=== PATIENT | female | born 1945 | race Caucasian/White ===

== ENCOUNTER → 2019-10-03 19:17 | Outpatient (ROUT) | payer MEDICARE, OTHER, SELFPAY ==
[2019-10-03 20:43] LABS: Add Manual Diff / Slide Review NO; Basophils Absolute Auto 100 /uL (0-100); Basophils Percent Auto 1.8 % (0-2); Eosinophils Absolute Auto 100 /uL (0-450); Eosinophils Percent Auto 1.9 % (2-4); Hematocrit 44.4 % (36-46); Hemoglobin 14.8 g/dL (12.0-16.0); Lymphocytes Absolute Auto 2000 /uL (1100-4500); Lymphocytes Percent Auto 28.2 % (25-40); Mean Corpuscular HGB Conc 33.4 % (30-36); Mean Corpuscular Hemoglobin 30.8 PG (26-34); Mean Corpuscular Volume 92.3 fL (80-100); Monocytes Absolute Auto 400 /uL (0-900); Monocytes Percent Auto 5.7 % (3-14); Neutrophils Absolute Auto 4500 /uL (1500-7000); Neutrophils Percent Auto 62.4 % (50-75); Platelet Count 369 X10^3/uL (150-400); Red Blood Cell Count 4.81 X10^6/uL (4.0-5.2); Red Cell Distribution Width 13.6 % (11.6-14.8); White Blood Cell Count 7.2 X10^3/uL (4.5-11.0)
[2019-10-03 20:50] LABS: Alanine Aminotransferase 12 IU/L (<35); Albumin 4.1 g/dL (3.5-5.0); Albumin Globulin Ratio 1.5 (1.0-2.8); Alkaline Phosphatase 94 U/L (38-126); Aspartate Aminotransferase 21 IU/L (14-36); BUN Creatinine Ratio 23.8 (6-22); Bilirubin Total 0.6 mg/dL (0.2-1.3); Blood Urea Nitrogen 19 mg/dL (7-17); Calcium 9.7 mg/dL (8.4-10.2); Carbon Dioxide 27 mmol/L (22-32); Chloride 105 mmol/L (98-107); Cholesterol 249 mg/dL (140-199); Estimated Glomerular Filt Rate > 60.0 mL/min (>60); Globulin 2.8 g/dL (1.7-4.1); Glucose 138 mg/dL (80-110); HDL Cholesterol 58 mg/dL (40-60); HEMOLYSIS < 15 (0-50); LDL Cholesterol Calculated 157 mg/dL (<100); Magnesium 2.1 mg/dL (1.6-2.3); Potassium 3.6 mmol/L (3.4-5.1); Sodium 141 mmol/L (137-145); Total Protein 6.9 g/dL (6.3-8.2); Triglycerides 168 mg/dL (35-150)
[2019-10-03 20:59] LABS: NT-proBNP (BNP-Adult 18+) 106 pg/mL (<450)
[2019-10-03 21:07] LABS: Vitamin D 25 Hydroxy (D3) 27.9 ng/mL (30.0-100.0)
[2019-10-03 21:21] LABS: TSH w/ Reflex to FT4 3.81 uIU/mL (0.47-4.68)
== END ==
PROVIDERS: Visit Provider Physician Assistant
DX: R55 Syncope and collapse (principal); R06.02 Shortness of breath; R06.09 Other forms of dyspnea; I10 Essential (primary) hypertension; K21.9 Gastro-esophageal reflux disease without esophagitis; E78.2 Mixed hyperlipidemia
CPT/HCPCS: 80053; 80061; 82306; 83735; 83880; 84443; 85025

== ENCOUNTER → 2019-10-10 15:13 | Outpatient (CLI) | payer MEDICARE, OTHER, SELFPAY ==
--- NOTE | 2019-10-10 | DI.MRI.S_ITS ---
PROCEDURE: MR STROKE Pre- and post-contrast brain MRI, non-contrast brain MR angiogram, pre- and postcontrast neck MR angiogram INDICATIONS: Syncope and collapse TECHNIQUE: Brain: Noncontrast axial T1 spin echo, axial T2 fast spin echo, sagittal and axial FLAIR, coronal T2 fast spin echo, axial gradient echo, axial diffusion and ADC through the brain. After the administration of contrast, axial 3D VIBE of the cranial vasculature and brain. Brain MRA: Non-contrast 3-D time of flight MR angiogram, with multiple csglnbu-thlejrbbn-ubppqvetsq (MIP) reformats performed. Neck MRA: Axial and sagittal TruFISP through the neck. Coronal dynamic MR angiogram during administration of contrast in the arterial and venous phases, with 3-dimenstional uxzspjh-hifpzdnkw-ukgfgrbnms (MIP) reformats constructed from subtraction images. COMPARISON: [facility], CT, HEAD WITHOUT CONTRAST, 11/16/2014, 11:08. FINDINGS: Image quality: Mild diffuse cervical volume loss. Mild degree of patchy high FLAIR signal within the periventricular and subcortical white matter. BRAIN: CSF spaces: Ventricles are normal in size and shape. Basal cisterns are patent. No extra-axial fluid collections. Brain: No intracranial bleeds or mass effects. Hull-white matter interface is normal. Diffusion weighted images show no acute ischemic insults. Brainstem appears normal. Normal intravascular flow voids are present. No abnormal intracranial enhancement. Skull and face: Calvarial marrow signal is normal. Orbits appear normal. Sinuses: Mild mucosal thickening within the bilateral maxillary sinuses. BRAIN MR ANGIOGRAM: Anterior circulation: Intracranial internal carotid arteries are normal in size and enhancement. The flow within the paired anterior cerebral arteries is normal and symmetric. The flow within the middle cerebral arteries is normal and symmetric. The anterior communicating artery is seen. No stenoses, occlusions, or aneurysms. Posterior circulation: The visualized portions of the vertebral arteries demonstrate normal caliber, and join to form a normal appearing basilar artery. The flow within the posterior cerebral arteries is normal and symmetric. No stenoses, occlusions, or aneurysms. NECK MR ANGIOGRAM: Carotids: Great vessels demonstrate a conventional anatomy as they arise from the aortic arch. The origins of the common carotid arteries appear patent. The calibers and courses of both common carotid arteries are normal. The bifurcation regions appear normal bilaterally. The internal carotid arteries demonstrate normal course and caliber. Posterior circulation: The origins of the vertebral arteries appear patent. More superior portions of both vertebral arteries demonstrate normal course and caliber, and join to form a normal appearing basilar artery. Miscellaneous: Subclavian arteries appear patent. Pre-contrast images through the neck show no soft tissue abnormalities. IMPRESSION: BRAIN MRI: 1. No acute intracranial abnormality. No recent infarct. 2. Volume loss and small vessel ischemic disease. BRAIN MR ANGIOGRAM: Negative cerebral MR angiography. NECK MR ANGIOGRAM: 1. No internal carotid artery stenosis bilaterally. 2. Patent bilateral vertebral arteries. Dictated by: Carine Beckford M.D. on 10/10/2019 at 17:05 Approved by: Carine Beckford M.D. on 10/10/2019 at 17:10
== END ==
PROVIDERS: PCP Physician Assistant; Referring Provider Physician Assistant; Visit Provider Physician Assistant
DX: R55 Syncope and collapse (principal)
CPT/HCPCS: 70548; 70553; A9579

== ENCOUNTER → 2019-10-13 07:34 | Outpatient (CLI) | payer MEDICARE, OTHER, SELFPAY ==
--- NOTE | 2019-10-13 | DI.ECHO.S_ITS ---
[facility] +---------+ : : [address] [place] : : : : [id number] : : : : Phone: [phone] Echocardiogram Report + + :Name: ERICK FAN Study Date: 10/13/2019 Height: 63 in : :[facility] Weight: 170 lb : : Gender: Female BSA: 1.8 m2 : :: 1945 Age: 74 yrs BP: 175/95 mmHg: :Reason For Study: SOB : : Performed By: David Sen : :Referring: JABIER VELIZ : + + Interpretation Summary The ejection fraction is estimated to be 60-65%. There is trace tricuspid regurgitation. The right ventricular systolic pressure is estimated to be at least 26 mmHg based on an estimated right atrial pressure of 3 mm Hg. Procedure: A two-dimensional transthoracic echocardiogram with color flow and Doppler was performed. The study quality was technically adequate. Comparison is made with the echocardiogram of 08/07/09. The patient was in normal sinus rhythm during the exam. Left Ventricle: The left ventricle is normal in size. There is normal left ventricular wall thickness. Trabeculae near apex are visualized. No thrombus is observed. The ejection fraction is estimated to be 60-65%. Left ventricular wall motion is normal. Diastolic parameters suggest a relaxation abnormality of the left ventricle, consistent with probable normal filling pressures. Right Ventricle: The right ventricle is normal in size and function. Atria: Both atria are normal in size. The interatrial septum is intact with no evidence for an atrial septal defect. Mitral Valve: The mitral valve is normal in structure and function. There has been no significant change since the previous study. Aortic Valve: The aortic valve is trileaflet. The aortic valve opens well. There is no aortic valve stenosis. No aortic regurgitation is present. Tricuspid Valve: The tricuspid valve is normal in structure and function. There is trace tricuspid regurgitation. The right ventricular systolic pressure is estimated to be at least 26 mmHg based on an estimated right atrial pressure of 3 mm Hg. Pulmonic Valve: The pulmonic valve is normal in structure and function. There is trace pulmonic regurgitation. Great Vessels: The aortic root is normal size. The dimensions of the ascending aorta are normal. The pulmonary artery is normal size. The IVC is of normal diameter and collapses greater than 50% with a sniff. This suggests a low right atrial pressure of 3 mm Hg. Pericardium/ Pleura There is no pericardial effusion. There is no pleural effusion. MMode/2D Measurements & Calculations LVIDd: 4.9 cm LVOT diam: 2.0 cm LVIDs: 3.8 cm Ao root diam: 2.7 cm FS: 22.9 % Aortic Jxn: 1.9 cm EPSS: 0.61 cm asc Aorta Diam: 2.7 cm IVSd: 1.1 cm Ao Arch Diam (Prox Trans): 2.7 cm LVPWd: 1.00 cm LV vazquez. diameter/BSA (cm/m^2): 2.7 LV sys. diameter/BSA (cm/m^2): 2.1 LA dimension: 3.0 cm RA long axis: 3.6 cm LA A2 area: 14.3 cm2 RA area: 12.7 cm2 LA A4 area: 14.1 cm2 RA vol: 38.0 ml LA length (vol): 4.4 cm RA : 21.0 ml/m2 LA vol: 39.1 ml IVC diam: 1.3 cm LA vol index: 21.7 ml/m2 Doppler Measurements & Calculations Ao V2 max: 160.3 cm/sec LVOT Max Ten: 107.5 cm/sec Ao V2 mean: 121.6 cm/sec LV V1 max P.6 mmHg Ao max P.3 mmHg LV V1 VTI: 24.0 cm Ao mean P.2 mmHg AVANI(I,D): 2.3 cm2 Ao V2 VTI: 33.2 cm AVANI(V,D): 2.1 cm2 sev ratio: 0.72 AVANI indexed to BSA (cm^2/m^2): 1.3 MV E max ten: 59.3 cm/sec TR max ten: 237.1 cm/sec MV A max ten: 109.9 cm/sec TR max P.5 mmHg MV E/A: 0.54 PA V2 max: 96.5 cm/sec Med Peak E' Ten: 3.8 cm/sec PA V2 mean: 73.9 cm/sec E/E' med: 15.7 PA mean P.3 mmHg Lat Peak E' Ten: 4.4 cm/sec PA pr(Accel): 27.6 mmHg E/E' lat: 13.4 E/e' average: 14.5 MV dec time: 0.21 sec SV(LVOT): 75.5 ml Reading Physician:03:33 PM
== END ==
PROVIDERS: PCP Physician Assistant; Referring Provider Physician Assistant; Visit Provider Physician Assistant
DX: R06.02 Shortness of breath (principal)
CPT/HCPCS: 93306

== ENCOUNTER → 2019-11-20 08:51 | Outpatient (CLI) | payer MEDICARE, OTHER, SELFPAY ==
--- NOTE | 2019-11-20 | DI.NM.S_ITS ---
PROCEDURE: NM REBA PERF SPECT R&S PHARM Rest and pharmacological stress myocardial perfusion SPECT with gated imaging and ejection fraction RADIOPHARMACEUTICAL: 15.0 mCi Tc-99m tetrafosmin IV at rest and 26.4 mCi Tc-99m tetrafosmin IV at peak effect of pharmacological stress. Ssx-wdq-cckjyofk was performed. INDICATIONS: Other forms of dyspnea TECHNIQUE: Radiopharmaceutical was injected at peak stress test, and also at rest. SPECT images were obtained. SPECT myocardial perfusion images were displayed in short axis, horizontal long axis, and vertical long axis views. Gated images were reviewed using [employer] software. COMPARISON: None. CARDIAC STRESS: A pharmacologic stress test was performed under the supervision of an attending staff, using an infusion of lexiscan 0.4mg IV X1. Hemodynamic data: There is normal blood pressure and heart rate response to pharmacologic stress. Symptoms: The patient denied anginal chest pain. Aminophylline: none EKG: No diagnostic changes of ischemia; frequent PVCs with lexiscan. FINDINGS: Raw data: There is good myocardial uptake of radiotracer. No significant motion artifacts. Wjtv-nk-pxrfc ratio is 0.30 (normal is less than 0.38 for tetrafosmin tracer). Left ventricle function: Gated images demonstrate normal left ventricular wall thickening. No segmental wall motion abnormalities. No transient ischemic dilation; TID is 0.71 (normal less than 1.3). Left ventricle resting end diastolic volume is 51 mL. Left ventricle stress ejection fraction is 94%; normal range is above 45%. Myocardial perfusion: There is normal distribution of activity in the right and left ventricular myocardium. No fixed or reversible perfusion defects. IMPRESSION: Low risk, normal pharmaceutical nuclear stress test. 1) No perfusion evidence of ischemia or infarction. 2) Normal left ventricular size, wall motion, and systolic function (EF post stress 94%). 3) No ECG evidence of ischemia. 4) No angina during the study. 5) No prior nuclear stress test available for comparison. Dictated by: Carrie Williamson MD on 11/21/2019 at 11:25 Approved by: Carrie Williamson MD on 11/21/2019 at 11:27
--- NOTE | 2019-11-20 15:33 | PM.TREADMILL ---
Cardiac Stress Test Report Referral & Results Date Patient Seen: 11/20/19 Time Patient Seen: 15:33 Requesting provider: Camelia Flores Indication: dyspnea Rest ECG: sinus rhythm Procedure Note: After Lexiscan injection had minimal dyspnea, dizziness ; no chest discomfort Baseline ECG sinus rhythm; no significant ST changes on ECG after Lexiscan injection; occasional PVCs and trigeminy. Patient's blood pressure decreased to 90/60. Patient was given 25 ml normal saline with an improvement in blood pressure to 120/60. No reversal agents needed. Impression: Normal Lexiscan stress test. Nuclear images pending. Please note: Actual ECG tracings can be found in the PACS system.
== END ==
PROVIDERS: PCP Physician Assistant; Referring Provider Physician Assistant; Visit Provider Physician Assistant
DX: R06.09 Other forms of dyspnea (principal)
CPT/HCPCS: 78452; 93017; A9502; J2785

== ENCOUNTER → 2020-01-22 15:05 | Outpatient (CLI) | payer MEDICARE, OTHER, SELFPAY ==
--- NOTE | 2020-01-22 | DI.RAD.S_ITS ---
PROCEDURE: XR ABDOMEN MIN 2V INDICATIONS: Unspecified abdominal pain TECHNIQUE: 2 views of the abdomen were acquired. COMPARISON: [facility], , ABDOMEN ACUTE SERIES, 06/21/2011, 14:45. FINDINGS: Surgical changes and devices: None. Bowel: No pneumoperitoneum. The bowel gas pattern is normal. Soft tissues: No masses; visualized solid organ contours appear normal in size. No suspicious abdominal calcifications. Nonspecific pelvic ossifications. Bones: No suspicious bony abnormalities. Diffuse spondylosis. Mild bilateral hip joint degeneration. IMPRESSION: No definite radiographically visible nephrolithiasis Dictated by: Erwin Olea M.D. on 01/22/2020 at 15:59 Approved by: Erwin Olea M.D. on 01/22/2020 at 16:02
[2020-01-22 16:16] LABS: Add Manual Diff / Slide Review NO; Basophils Absolute Auto 100 /uL (0-100); Basophils Percent Auto 1.5 % (0-2); Eosinophils Absolute Auto 100 /uL (0-450); Eosinophils Percent Auto 1.5 % (2-4); Hematocrit 43.9 % (36-46); Lymphocytes Absolute Auto 2400 /uL (1100-4500); Lymphocytes Percent Auto 27.2 % (25-40); Mean Corpuscular HGB Conc 34.1 % (30-36); Mean Corpuscular Hemoglobin 31.2 PG (26-34); Mean Corpuscular Volume 91.4 fL (80-100); Monocytes Absolute Auto 500 /uL (0-900); Monocytes Percent Auto 5.5 % (3-14); Neutrophils Absolute Auto 5800 /uL (1500-7000); Neutrophils Percent Auto 64.3 % (50-75); Platelet Count 351 X10^3/uL (150-400); Red Cell Distribution Width 13.6 % (11.6-14.8)
[2020-01-22 16:53] LABS: Alanine Aminotransferase 12 IU/L (<35); Albumin 4.3 g/dL (3.5-5.0); Albumin Globulin Ratio 1.7 (1.0-2.8); Alkaline Phosphatase 85 U/L (38-126); Aspartate Aminotransferase 18 IU/L (14-36); BUN Creatinine Ratio 23.5 (6-22); Bilirubin Total 0.6 mg/dL (0.2-1.3); Blood Urea Nitrogen 19 mg/dL (7-17); Carbon Dioxide 21 mmol/L (22-32); Chloride 106 mmol/L (98-107); Estimated Glomerular Filt Rate > 60.0 mL/min (>60); Globulin 2.5 g/dL (1.7-4.1); Glucose 106 mg/dL (80-110); HEMOLYSIS < 15 (0-50); Potassium 3.7 mmol/L (3.4-5.1); Sodium 139 mmol/L (137-145); Total Protein 6.8 g/dL (6.3-8.2)
[2020-01-22 17:10] LABS: Vitamin D 25 Hydroxy (D3) 36.8 ng/mL (30.0-100.0)
[2020-01-22 17:26] LABS: TSH w/ Reflex to FT4 5.86 uIU/mL (0.47-4.68)
[2020-01-22 17:41] LABS: Vitamin B12 201 pg/mL (239-931)
[2020-01-22 18:44] LABS: Free T4, Direct Thyroxine 1.02 ng/dL (0.78-2.19)
== END ==
PROVIDERS: PCP Physician Assistant; Referring Provider Physician Assistant; Visit Provider Physician Assistant
DX: R10.9 Unspecified abdominal pain (principal); E78.2 Mixed hyperlipidemia; K21.0 Gastro-esophageal reflux disease with esophagitis; I10 Essential (primary) hypertension; E55.9 Vitamin D deficiency, unspecified; R53.83 Other fatigue
CPT/HCPCS: 36415; 74019; 80053; 82306; 82607; 84439; 84443; 85025

== ENCOUNTER → 2020-01-29 13:41 | Outpatient (CLI) | payer MEDICARE, OTHER, SELFPAY ==
[2020-01-29 14:12] LABS: Add Manual Diff / Slide Review NO; Basophils Absolute Auto 0 /uL (0-100); Basophils Percent Auto 0.4 % (0-2); Eosinophils Absolute Auto 100 /uL (0-450); Eosinophils Percent Auto 1.8 % (2-4); Hematocrit 41.9 % (36-46); Hemoglobin 14.5 g/dL (12.0-16.0); Lymphocytes Absolute Auto 2500 /uL (1100-4500); Lymphocytes Percent Auto 31.3 % (25-40); Mean Corpuscular HGB Conc 34.6 % (30-36); Mean Corpuscular Hemoglobin 31.9 PG (26-34); Mean Corpuscular Volume 92.2 fL (80-100); Monocytes Absolute Auto 400 /uL (0-900); Monocytes Percent Auto 5.1 % (3-14); Neutrophils Absolute Auto 4900 /uL (1500-7000); Neutrophils Percent Auto 61.4 % (50-75); Platelet Count 329 X10^3/uL (150-400); Red Blood Cell Count 4.54 X10^6/uL (4.0-5.2); Red Cell Distribution Width 13.4 % (11.6-14.8); White Blood Cell Count 7.9 X10^3/uL (4.5-11.0)
[2020-01-29 15:01] LABS: Alanine Aminotransferase 12 IU/L (<35); Albumin 4.3 g/dL (3.5-5.0); Albumin Globulin Ratio 1.8 (1.0-2.8); Alkaline Phosphatase 77 U/L (38-126); Aspartate Aminotransferase 20 IU/L (14-36); BUN Creatinine Ratio 20.2 (6-22); Bilirubin Total 0.6 mg/dL (0.2-1.3); Blood Urea Nitrogen 19 mg/dL (7-17); Calcium 9.7 mg/dL (8.4-10.2); Carbon Dioxide 26 mmol/L (22-32); Chloride 108 mmol/L (98-107); Estimated Glomerular Filt Rate 57.9 mL/min (>60); Globulin 2.4 g/dL (1.7-4.1); Glucose 117 mg/dL (80-110); HEMOLYSIS < 15 (0-50); Potassium 4.4 mmol/L (3.4-5.1); Sodium 140 mmol/L (137-145); Total Protein 6.7 g/dL (6.3-8.2)
[2020-01-29 15:31] LABS: TSH w/ Reflex to FT4 4.41 uIU/mL (0.47-4.68)
[2020-01-29 15:49] LABS: Vitamin B12 200 pg/mL (239-931)
[2020-01-29 15:55] LABS: Vitamin D 25 Hydroxy (D3) 26.9 ng/mL (30.0-100.0)
[2020-01-30 06:45] LABS: Homocysteine 23.8 umol/L (0.0-19.2)
[2020-01-31 20:36] LABS: Methylmalonic Acid,Serum 905 nmol/L (0-378)
== END ==
PROVIDERS: PCP Physician Assistant; Referring Provider Physician Assistant; Visit Provider Physician Assistant
DX: E78.2 Mixed hyperlipidemia (principal); R79.89 Other specified abnormal findings of blood chemistry; E53.8 Deficiency of other specified B group vitamins; K21.0 Gastro-esophageal reflux disease with esophagitis; I10 Essential (primary) hypertension; R53.83 Other fatigue; R10.9 Unspecified abdominal pain; E55.9 Vitamin D deficiency, unspecified
CPT/HCPCS: 36415; 80053; 82306; 82607; 83090; 83921; 84443; 85025

== ENCOUNTER 2020-05-09 15:34 | Emergency (ER) | payer MEDICARE, OTHER, SELFPAY ==
[2020-05-09] VITALS (10 sets, daily range): BP systolic 117–188; BP diastolic 59–89; PULSE 70–87; RESP 16–33; TEMP 36.9; O2SAT 93–98; BMI 30.4
--- NOTE | 2020-05-09 15:42 | DI.RAD.S_ITS ---
PROCEDURE: XR CHEST 1V INDICATIONS: chest pain TECHNIQUE: One view of the chest was acquired. COMPARISON: [facility], , CHEST FOR PICC PLACEMENT, 11/16/2010, 12:49. FINDINGS: Surgical changes and devices: None. Lungs and pleura: Lungs are clear. No pneumothorax. Trace left-sided pleural fluid collection. Mediastinum: Mediastinal contours appear normal. Heart size is normal. Bones and chest wall: No suspicious bony lesions. Overlying soft tissues appear unremarkable. IMPRESSION: Trace left-sided pleural fluid collection. Dictated by: Melinda Mcclendon MD, PhD on 05/09/2020 at 16:19 Approved by: Melinda Mcclendon MD, PhD on 05/09/2020 at 16:20
--- NOTE | 2020-05-09 15:48 | PC.NURSE ---
Pt was at the car wash and washing her wheels when she felt lightheaded and laid herself on the grass. witnessed by a friend. LOC x 2-3 seconds. no injury. arrived via EMS. IVF given in field. while in ambulance pt with episode of confusion, was unable to spell her name and was word searching. FAST negative. NIH 0. Labs drawn and sent, placed on cardiac monitoring and RT aware of EKG.
[2020-05-09 16:00] LABS: Add Manual Diff / Slide Review NO; Basophils Absolute Auto 100 /uL (0-100); Basophils Percent Auto 1.4 % (0-2); Eosinophils Absolute Auto 100 /uL (0-450); Eosinophils Percent Auto 0.6 % (2-4); Hematocrit 43.4 % (36-46); Hemoglobin 14.6 g/dL (12.0-16.0); Lymphocytes Absolute Auto 2400 /uL (1100-4500); Lymphocytes Percent Auto 25.5 % (25-40); Mean Corpuscular HGB Conc 33.7 % (30-36); Monocytes Absolute Auto 600 /uL (0-900); Monocytes Percent Auto 6.5 % (3-14); Neutrophils Absolute Auto 6200 /uL (1500-7000); Platelet Count 296 X10^3/uL (150-400); Red Blood Cell Count 4.71 X10^6/uL (4.0-5.2); Red Cell Distribution Width 12.9 % (11.6-14.8); White Blood Cell Count 9.3 X10^3/uL (4.5-11.0)
[2020-05-09 16:09] LABS: PTT Partial Thromboplastin Tim 26 SECONDS (26.4-36.2)
[2020-05-09 16:12] LABS: Alanine Aminotransferase 15 IU/L (<35); Albumin 4.2 g/dL (3.5-5.0); Albumin Globulin Ratio 1.6 (1.0-2.8); Alkaline Phosphatase 75 U/L (38-126); Aspartate Aminotransferase 21 IU/L (14-36); Bilirubin Total 0.6 mg/dL (0.2-1.3); Blood Urea Nitrogen 26 mg/dL (7-17); Calcium 9.1 mg/dL (8.4-10.2); Carbon Dioxide 24 mmol/L (22-32); Chloride 106 mmol/L (98-107); Creatine Kinase 41 U/L (30-135); Estimated Glomerular Filt Rate 39.8 mL/min (>60); Globulin 2.7 g/dL (1.7-4.1); Glucose 119 mg/dL (80-110); HEMOLYSIS < 15 (0-50); Lipase 68 U/L (23-300); Potassium 3.7 mmol/L (3.4-5.1); Sodium 139 mmol/L (137-145); Total Protein 6.9 g/dL (6.3-8.2)
--- NOTE | 2020-05-09 16:13 | ED_ITS ---
HPI - General Adult General Chief complaint: Syncope Stated complaint: Syncope Time Seen by Provider: 05/09/20 16:13 History of Present Illness HPI narrative: 74-year-old woman with a history of hypertension on ramipril presents with 2 near syncopal episodes today. The she has had 3 other days with similar findings. The 1st time she was walking in the [place] and noticed increasing dyspnea and near-syncope describes a graying out. She sat down to avoid falling and experienced a brief loss of consciousness without loss of bowel or bladder function. She had a similar episode that resulted in outpatient MRI stress test and echocardiogram all of which were unremarkable. Last week she describes feeling quite fatigued and did not leave her apartment. Today she got up and while in the shower had a episode of dizziness near-syncope sat down did not lose consciousness. After some breakfast felt significantly improved. Went to a friend's house and while bending over washing the wheels of her car she again felt dizzy. She sat down continued to feel that she was going to ?dye out? laid back and believes that she did lose consciousness for a brief few seconds. Again no loss of bowel or bladder function. She notes that she seemed a bit fuzzy as the medics were bringing her in but feels absolutely back to normal in the emergency department. Related Data Home Medications Medication Instructions Recorded Confirmed CHOLECALCIFEROL (VITAMIN D3) #0 11/14/10 (Vitamin D3) [CALCIUM] #0 11/14/10 [DIURETIC] #0 11/14/10 RAMIPRIL #0 06/21/11 Allergies Allergy/AdvReac Type Severity Reaction Status Date / Time Tetanus Toxoid Allergy Unknown Uncoded 11/17/17 12:14 Review of Systems Review of Systems Narrative: Pertinent positive and negative findings as per HPI Remainder of review of systems is otherwise unremarkable for Constitutional: Fevers, chills, weakness ENT: No sore throat, neck pain, ear pain CV: Chest pain, palpitations, dyspnea on exertion Respiratory: Cough, wheeze, dyspnea GI: Nausea, vomiting, diarrhea, change in bowel habits, black or bloody stools : Dysuria, hematuria, flank pain MS: Muscle weakness, numbness, joint swelling or warmth Skin: Rashes, nonhealing lesions Patient History Medical History Hypertension (Acute) Exam Narrative Exam Narrative: General: Healthy appearing, in no acute distress. Able to give a complete and coherent history. Well-nourished well-developed HEENT: Moist mucous membranes, normal sclera with reactive pupils, Neck: No JVD, supple Respiratory: Lungs are clear to auscultation, no wheezing no rales no rhonchi. Full and symmetrical air movement Cardiac: Regular rate and rhythm no murmurs no bruits Abdomen: Soft nontender good bowel tones, no flank pain Skin: Warm and dry, no rashes Neurologic: Grossly neurologically intact with no obvious asymmetries or abnormalities Extremities: No trauma, well perfused Psych: Cooperative, appropriate insight and affect Of note mildly orthostatic Initial Vital Signs Initial Vital Signs: Vital Signs Temperature 98.5 F 05/09/20 15:43 Pulse Rate 80 05/09/20 15:43 Respiratory Rate 20 05/09/20 15:43 Blood Pressure 136/89 05/09/20 15:43 Pulse Oximetry 94 05/09/20 15:43 Course Orders Ordered: Discontinued Medications Sodium Chloride (Normal Saline 0.9%) 1,000 mls @ 1,000 mls/hr IV BOLUS ONE Stop: 05/09/20 19:19 Last Infusion: 05/09/20 19:22 Dose: 0 mls/hr Documented by: Admin: 05/09/20 18:22 Dose: 1,000 mls/hr Documented by: BRENDA Vital Signs Vital signs: Vital Signs - 8 hr 05/09/20 15:43 05/09/20 15:44 05/09/20 16:00 Temperature 98.5 F Pulse Rate 80 80 81 Respiratory Rate 20 24 25 H Blood Pressure 136/89 Pulse Oximetry 94 94 94 05/09/20 16:01 05/09/20 16:30 05/09/20 16:31 Temperature Pulse Rate 78 76 76 Respiratory Rate 22 33 H 27 H Blood Pressure 132/59 L 117/79 Pulse Oximetry 96 93 93 05/09/20 16:41 05/09/20 17:00 05/09/20 17:30 Temperature Pulse Rate 87 70 70 Respiratory Rate 32 H 21 23 Blood Pressure 147/63 H 153/70 H 158/66 H Pulse Oximetry 97 97 98 Medical Decision Making Medical Records Medical records reviewed: Yes I reviewed the patient's medical records. Medical records narrative: 11/2019 normal Lexiscan stress test 10/2019 Echo: Interpretation Summary The ejection fraction is estimated to be 60-65%. There is trace tricuspid regurgitation. The right ventricular systolic pressure is estimated to be at least 26 mmHg based on an estimated right atrial pressure of 3 mm Hg. 10/2019 [facility] [place] IMPRESSION: BRAIN MRI: 1. No acute intracranial abnormality. No recent infarct. 2. Volume loss and small vessel ischemic disease. BRAIN MR ANGIOGRAM: Negative cerebral MR angiography. NECK MR ANGIOGRAM: 1. No internal carotid artery stenosis bilaterally. 2. Patent bilateral vertebral arteries. Dictated by: Carine Beckford M.D. on 10/10/2019 at 17:05 Lab Data Lab results reviewed: Yes I reviewed the patient's lab results. Lab results narrative: Jump in creatinine from 0.94-1.3 Result diagrams: 05/09/20 15:50 05/09/20 15:50 Labs: Lab Results 05/09/20 05/09/20 05/09/20 Range/Units 15:50 15:50 15:50 WBC 9.3 (4.5-11.0) X10^3/uL RBC 4.71 (4.0-5.2) X10^6/uL Hgb 14.6 (12.0-16.0) g/dL Hct 43.4 (36-46) % MCV 92.0 (80-100) fL MCH 31.0 (26-34) PG MCHC 33.7 (30-36) % RDW 12.9 (11.6-14.8) % Plt Count 296 (150-400) X10^3/uL Neut % (Auto) 66.0 (50-75) % Lymph % (Auto) 25.5 (25-40) % [place] % (Auto) 6.5 (3-14) % Eos % (Auto) 0.6 L (2-4) % Baso % (Auto) 1.4 (0-2) % Neut # (Auto) 6200 (2072-2748) /uL Lymph # (Auto) 2400 (1358-9009) /uL [place] # (Auto) 600 (0-900) /uL Eos # (Auto) 100 (0-450) /uL Baso # (Auto) 100 (0-100) /uL PT 12.0 (10.1-12.7) SECONDS INR 1.0 (0.9-1.3) APTT 26 L (26.4-36.2) SECONDS Sodium 139 (137-145) mmol/L Potassium 3.7 (3.4-5.1) mmol/L Chloride 106 (98-107) mmol/L Carbon Dioxide 24 (22-32) mmol/L BUN 26 H (7-17) mg/dL Creatinine 1.30 H (0.52-1.04) mg/dL Estimated GFR 39.8 L (>60) mL/min BUN/Creatinine Ratio 20.0 (6-22) Glucose 119 H (80-110) mg/dL Calcium 9.1 (8.4-10.2) mg/dL Total Bilirubin 0.6 (0.2-1.3) mg/dL AST 21 (14-36) IU/L ALT 15 (<35) IU/L Alkaline Phosphatase 75 (38-126) U/L Total Creatine Kinase 41 (30-135) U/L CK-MB (CK-2) TNP CK-MB (CK-2) Rel Index TNP Troponin I < 0.012 (0.01-0.034) ng/mL Total Protein 6.9 (6.3-8.2) g/dL Albumin 4.2 (3.5-5.0) g/dL Globulin 2.7 (1.7-4.1) g/dL Albumin/Globulin Ratio 1.6 (1.0-2.8) Lipase 68 (23-300) U/L Point of Care Testing Glucose POC 119 Point of care testing: Point of Care Testing Glucose POC 119 [facility] Narrative Medical decision making narrative: 74-year-old woman now with 5 episodes of near-syncope where she has a sense that she is dizzy going to pass out is able to sit down or lay down and then feels better. She has had a thorough outpatient workup looking for strokes ischemic disease as well as heart failure with no significant findings noted. I suspect that a component of this is orthostatic. From laying to standing today she did increase her heart rate from 70 up to 91. Will give her L of fluid. At this point I believe that she is safe for home discharge will ask her to follow-up with her primary care physician. She is not currently on a diuretic. At this time I do not suspect stroke, TIA, acute coronary syndrome or STEMI, no obvious infection and no evidence of seizure. Discharge Plan Departure Patient Disposition: Home Clinical Impression: Syncope due to orthostatic hypotension Hypertension Qualifiers: Hypertension type: essential hypertension Qualified Code(s): I10 - Essential (primary) hypertension Discharge Date/Time: 05/09/20 19:37 Instructions: DI for Orthostatic Hypotension Activity Restrictions/Additional Instructions: Thank you for coming in today Your workup was very reassuring. Your kidney function suggests that you are slightly dehydrated and that fits perfectly with the symptoms that you are having today. There is no evidence of a stroke, heart attack or heart attack like syndrome, seizure or infection You were given a L of fluid in the emergency department. Please continue your ramipril as prescribed. I would also recommend following up with Ms. Flores to make sure that you are continuing to feel well. If you have new or worsening symptoms, please return to the emergency department Prescriptions: No Action CHOLECALCIFEROL (VITAMIN D3) (Vitamin D3) Qty: 0 RF: 0 [CALCIUM] Qty: 0 RF: 0 [DIURETIC] Qty: 0 RF: 0 RAMIPRIL Qty: 0 RF: 0 Referrals: Camelia Flores PA-C [Primary Care Provider] -
[2020-05-09 16:23] LABS: Troponin I < 0.012 ng/mL (0.01-0.034)
[2020-05-09] MEDS: SODIUM CHLORIDE 0.9% 1,000 ML 1000 ML IV (18:22)
== END 2020-05-09 19:37 | disposition home or self-care (01) ==
PROVIDERS: Emergency Provider Emergency Medicine; PCP Physician Assistant
DX: R55 Syncope and collapse (principal)
CPT/HCPCS: 71045; 80053; 82550; 82962; 83690; 84484; 85025; 85610; 85730; 93005; 96360; 99284

== ENCOUNTER 2020-10-08 09:34 | Inpatient (IN) | payer MEDICARE, OTHER, SELFPAY ==
[2020-10-08] VITALS (19 sets, daily range): BP systolic 119–204; BP diastolic 56–99; PULSE 69–93; RESP 16–24; TEMP 36.2–37.4; O2SAT 95–98; BMI 30.1; BMI 30.2
--- NOTE | 2020-10-08 10:47 | ED.GIBLEED ---
HPI - GI Bleed General Chief complaint: GI Bleed Stated complaint: nausea/vomiting/diarrhea with bright blood 2days Time Seen by Provider: 10/08/20 10:41 Source: patient History of Present Illness HPI Narrative: Patient here for lower abdominal discomfort but bright red blood bowel movements in the past 1 day. Over the weekend had nausea and vomiting nonbloody. Patient states had bloody stools 18 years ago with C diff. However was not on antibiotics at time and is not on any currently. Denies any back pain syncope or chest pain. Is not on any blood thinners. No recent colonoscopy. No prior history of diverticulosis. No palpitations dizziness or syncope complaint: blood on toilet paper Related Data Home Medications Medication Instructions Recorded Confirmed ramipril 5 mg PO DAILY 10/08/20 10/08/20 Allergies Allergy/AdvReac Type Severity Reaction Status Date / Time Tetanus Toxoid Allergy Unknown Uncoded 11/17/17 12:14 Review of Systems Review of Systems Narrative: GENERAL: Denies chills, fatigue, malaise, fever, sweats. HEENT: Denies sinus pain, ear pain, sore throat RESPIRATORY: Denies dyspnea, cough CARDIOVASCULAR: Denies chest pain, palpitations GASTROINTESTINAL: Complains nausea, vomiting, abdominal pain, complains of bright red blood per rectum : Denies dysuria, frequency, hematuria MUSCULOSKELETAL: denies muscle or bony pain SKIN: Denies rash, skin lesions NEUROLOGIC: Denies weakness, numbness ROS Unobtainable: All systems reviewed & are unremarkable except as noted in HPI and below Patient History Medical History Hypertension Surgical History Hx of appendectomy Social History household members: none Smoking Status: Former smoker alcohol intake: never Exam Narrative Exam Narrative: GENERAL: in no distress, not toxic not dyspneic HEAD: Normocephalic. EYES: Pupils equal round No scleral icterus. No injection no discharge, pink conjunctivae ENT: Mucous membranes moist. NECK: Trachea midline. CARDIOVASCULAR: Regular rate and rhythm without murmurs RESPIRATORY: Clear to auscultation. Breath sounds equal bilaterally. No wheezes, rales, or rhonchi. 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 There is bright red blood on glove. No melena. Hemoccult positive EXTREMITIES: No gross deformities. BACK: No flank tenderness. NEURO: AOx4. SKIN: Warm and dry PSYCH: Not anxious, is cooperative Initial Vital Signs Initial Vital Signs: Vital Signs Pulse Rate 86 10/08/20 10:20 Blood Pressure 148/99 H 10/08/20 10:20 Pulse Oximetry 98 10/08/20 10:20 Course Course Course Narrative: No bloody stools here. During course of stay Decision to Admit Date: 10/08/20 Decision to Admit time: 12:58 Orders Ordered: Hydromorphone HCl (Hydromorphone 0.5 Mg Inj) 0.5 mg IV Q6H PRN PRN Reason: Pain, Moderate (4-6) Sodium Chloride (Normal Saline 0.9%) 1,000 mls @ 100 mls/hr IV CONT [facility] Last Admin: 10/09/20 05:16 Dose: 100 mls/hr Documented by: Infusion: 10/09/20 04:15 Dose: 100 mls/hr Documented by: Admin: 10/08/20 18:15 Dose: 100 mls/hr Documented by: MICHELLE Naloxone HCl (Naloxone 0.4 Mg/Ml Vial) 0.2 mg IV Q2MIN PRN PRN Reason: Opiate Reversal Ondansetron HCl (Ondansetron 4 Mg/2 Ml Inj) 4 mg IV Q8HR PRN PRN Reason: Nausea And Vomiting Ramipril (Ramipril 2.5 Mg Capsule) 5 mg PO DAILY [facility] Discontinued Medications Sodium Chloride (Normal Saline 0.9%) 500 mls @ 1,000 mls/hr IV BOLUS ONE Stop: 10/08/20 11:50 Last Infusion: 10/08/20 13:01 Dose: 0 mls/hr Documented by: Admin: 10/08/20 12:27 Dose: 1,000 mls/hr Documented by: STEPHANI Ramipril (Ramipril 5 Mg Capsule) 5 mg PO DAILY [facility] Vancomycin HCl (Vancomycin 125 Mg Capsule) 125 mg PO Q6H [facility] Last Admin: 10/09/20 07:39 Dose: 125 mg Documented by: Admin: 10/09/20 01:12 Dose: 125 mg Documented by: Admin: 10/08/20 19:13 Dose: 125 mg Documented by: MICHELLE Reevaluation(s) Reevaluation #1: Updated patient results. She agrees for admission/observation Consultations Consultation #1: Spoke with Dr. Negrete, surgeon, admit to hospitalist. Do serial hemoglobin and hematocrit. No bowel prep at this time. Will re-evaluate tomorrow morning Time: 12:58 Vital Signs Vital signs: Vital Signs - 8 hr 10/08/20 10:20 10/08/20 10:22 10/08/20 10:30 Temperature 97.2 F L Pulse Rate 86 69 80 Respiratory Rate 16 Blood Pressure 148/99 H 148/99 H Pulse Oximetry 98 97 97 10/08/20 11:00 10/08/20 11:30 Temperature Pulse Rate 91 H 78 Respiratory Rate Blood Pressure Pulse Oximetry 95 97 MDM - GI Bleed Differential Diagnosis Differential diagnosis: Likely infectious diarrhea, Lower gastrointestinal hemorrhage and hematochezia Lab Data Attestation: I reviewed the patient's lab results. Result diagrams: 10/09/20 04:45 10/09/20 04:45 Labs: Lab Results 10/08/20 10/08/20 10/08/20 Range/Units 10:50 10:50 10:50 WBC 24.6 H (4.5-11.0) X10^3/uL RBC 4.60 (4.0-5.2) X10^6/uL Hgb 14.0 (12.0-16.0) g/dL Hct 42.3 (36-46) % MCV 92.1 (80-100) fL MCH 30.4 (26-34) PG MCHC 33.0 (30-36) % RDW 13.7 (11.6-14.8) % Plt Count 271 (150-400) X10^3/uL Neut % (Auto) 82.9 H (50-75) % Lymph % (Auto) 12.1 L (25-40) % Newton % (Auto) 4.2 (3-14) % Eos % (Auto) 0.2 L (2-4) % Baso % (Auto) 0.6 (0-2) % Neut # (Auto) 13427 H (3278-4808) /uL Lymph # (Auto) 3000 (0166-3523) /uL Newton # (Auto) 1000 H (0-900) /uL Eos # (Auto) 0 (0-450) /uL Baso # (Auto) 100 (0-100) /uL PT 12.7 (10.1-12.7) SECONDS INR 1.1 (0.9-1.3) APTT 27 (26.4-36.2) SECONDS Sodium 136 L (137-145) mmol/L Potassium 3.6 (3.4-5.1) mmol/L Chloride 103 (98-107) mmol/L Carbon Dioxide 25 (22-32) mmol/L BUN 18 H (7-17) mg/dL Creatinine 0.96 (0.52-1.04) mg/dL Estimated GFR 56.4 L (>60) mL/min BUN/Creatinine Ratio 18.8 (6-22) Glucose 118 H (80-110) mg/dL Calcium 9.1 (8.4-10.2) mg/dL Total Bilirubin 1.5 H (0.2-1.3) mg/dL AST 19 (14-36) IU/L ALT 13 (<35) IU/L Alkaline Phosphatase 90 (38-126) U/L Total Creatine Kinase 46 (30-135) U/L CK-MB (CK-2) TNP CK-MB (CK-2) Rel Index TNP Troponin I < 0.012 (0.01-0.034) ng/mL Total Protein 6.7 (6.3-8.2) g/dL Albumin 4.0 (3.5-5.0) g/dL Globulin 2.7 (1.7-4.1) g/dL Albumin/Globulin Ratio 1.5 (1.0-2.8) SARS-CoV-2 (PCR) (Negative) Blood Type Antibody Screen 10/08/20 10/08/20 Range/Units 10:50 13:33 WBC (4.5-11.0) X10^3/uL RBC (4.0-5.2) X10^6/uL Hgb (12.0-16.0) g/dL Hct (36-46) % MCV (80-100) fL MCH (26-34) PG MCHC (30-36) % RDW (11.6-14.8) % Plt Count (150-400) X10^3/uL Neut % (Auto) (50-75) % Lymph % (Auto) (25-40) % Newton % (Auto) (3-14) % Eos % (Auto) (2-4) % Baso % (Auto) (0-2) % Neut # (Auto) (9029-7391) /uL Lymph # (Auto) (1337-5806) /uL Newton # (Auto) (0-900) /uL Eos # (Auto) (0-450) /uL Baso # (Auto) (0-100) /uL PT (10.1-12.7) SECONDS INR (0.9-1.3) APTT (26.4-36.2) SECONDS Sodium (137-145) mmol/L Potassium (3.4-5.1) mmol/L Chloride (98-107) mmol/L Carbon Dioxide (22-32) mmol/L BUN (7-17) mg/dL Creatinine (0.52-1.04) mg/dL Estimated GFR (>60) mL/min BUN/Creatinine Ratio (6-22) Glucose (80-110) mg/dL Calcium (8.4-10.2) mg/dL Total Bilirubin (0.2-1.3) mg/dL AST (14-36) IU/L ALT (<35) IU/L Alkaline Phosphatase (38-126) U/L Total Creatine Kinase (30-135) U/L CK-MB (CK-2) CK-MB (CK-2) Rel Index Troponin I (0.01-0.034) ng/mL Total Protein (6.3-8.2) g/dL Albumin (3.5-5.0) g/dL Globulin (1.7-4.1) g/dL Albumin/Globulin Ratio (1.0-2.8) SARS-CoV-2 (PCR) Negative (Negative) Blood Type B Positive Antibody Screen Negative Imaging Data CT scan - abdomen/pelvis: Radiologist's Impression: [address] [id number] Scan ReportSigned Patient: Donna Cartgaena LMR#: [id number]: [id number]:[id number]/Sex: 75 / FDate of Service: 10/08/20Loc: EDAccession Number: [id number] Procedure: CT abdomen pelvis w con Ordering Provider: Lobo Stewart MD PROCEDURE: CT ABDOMEN PELVIS W CON INDICATIONS: Lower abdominal pain/GI bleed TECHNIQUE: After the administration of intravenous contrast, 5 mm thick sections acquired from the diaphragm to the symphysis. 5 mm coronal and sagittal reformats were acquired. For radiation dose reduction, the following was used: automated exposure control, adjustment of mA and/or kV according to patient size. COMPARISON: [facility], CT, ABDOMEN/PELVIS WITH CONTRAST, 11/14/2010, 13:21. FINDINGS: Image quality: Excellent. ABDOMEN: Lung bases: Lung bases are clear. Heart size is normal. Small hiatal hernia. Solid organs: Liver is normal in size and enhancement. Gallbladder is unremarkable. Biliary system is non dilated. Pancreas enhances normally. Spleen is normal in size and enhancement. No adrenal nodules. Kidneys demonstrate normal size and enhancement, without hydronephrosis. Peritoneum and bowel: There is moderate circumferential bowel wall thickening with mild surrounding inflammatory stranding involving the mid transverse colon extending into the distal descending colon. No evidence for free air or abscess formation. Small amount of scattered free fluid within the lower abdomen and pelvis likely reactive in etiology. No rim enhancement. No peritoneal thickening or enhancement. No free air. Nodes and vessels: No retroperitoneal or mesenteric adenopathy by size criteria. Aorta and inferior vena cava are normal in size. Scattered atherosclerotic calcifications of the abdominal aorta and iliac vessels without aneurysmal dilatation. Miscellaneous: No ventral hernias. PELVIS: Genitourinary: Urinary bladder wall thickness appears normal for degree of distension. Miscellaneous: No inguinal hernias. No pelvic adenopathy. Bones: No suspicious bony lesions. No acute vertebral body compression fractures. IMPRESSION: 1. Findings compatible with colitis of the transverse and descending colon likely infectious or inflammatory in etiology. No evidence for perforation or abscess formation. Consider direct visualization to exclude underlying neoplastic process once acute symptoms have resolved. 2. No evidence for bowel obstruction. 3. Small hiatal hernia. 4. Atherosclerosis. 5. Small amount of scattered free fluid likely reactive in etiology. Dictated by: Mohinder Holliday M.D. on 10/08/2020 at 11:48 Approved by: Mohinder Holliday M.D. on 10/08/2020 at 12:00 ECG Data Attestation: I personally reviewed and interpreted this ECG as follows: Interpretation: Normal sinus rhythm, no ST elevation or depression. Ventricular rate 79 MDM Narrative Medical decision making narrative: Addendum October 09, 2020 12:12 p.m.. Completing chart from yesterday. Appropriate for admission for monitoring hemoglobin and hematocrit. Reviewed with surgeon and hospitalist and agree for admit. Discharge Plan Departure Patient Disposition: Admitted as Observation Clinical Impression: Lower gastrointestinal hemorrhage Admit Date/Time: 10/08/20 13:35 Admit Provider: Vimal Khalil
[2020-10-08 11:01] LABS: Add Manual Diff / Slide Review NO; Basophils Absolute Auto 100 /uL (0-100); Basophils Percent Auto 0.6 % (0-2); Eosinophils Absolute Auto 0 /uL (0-450); Eosinophils Percent Auto 0.2 % (2-4); Hematocrit 42.3 % (36-46); Lymphocytes Absolute Auto 3000 /uL (1100-4500); Lymphocytes Percent Auto 12.1 % (25-40); Mean Corpuscular Hemoglobin 30.4 PG (26-34); Mean Corpuscular Volume 92.1 fL (80-100); Monocytes Absolute Auto 1000 /uL (0-900); Monocytes Percent Auto 4.2 % (3-14); Neutrophils Absolute Auto 20400 /uL (1500-7000); Neutrophils Percent Auto 82.9 % (50-75); Platelet Count 271 X10^3/uL (150-400); Red Cell Distribution Width 13.7 % (11.6-14.8); White Blood Cell Count 24.6 X10^3/uL (4.5-11.0)
[2020-10-08 11:08] LABS: INR 1.1 (0.9-1.3); Prothrombin Time 12.7 SECONDS (10.1-12.7)
[2020-10-08 11:12] LABS: Alanine Aminotransferase 13 IU/L (<35); Albumin Globulin Ratio 1.5 (1.0-2.8); Alkaline Phosphatase 90 U/L (38-126); Aspartate Aminotransferase 19 IU/L (14-36); BUN Creatinine Ratio 18.8 (6-22); Bilirubin Total 1.5 mg/dL (0.2-1.3); Blood Urea Nitrogen 18 mg/dL (7-17); Calcium 9.1 mg/dL (8.4-10.2); Carbon Dioxide 25 mmol/L (22-32); Chloride 103 mmol/L (98-107); Creatine Kinase 46 U/L (30-135); Estimated Glomerular Filt Rate 56.4 mL/min (>60); Globulin 2.7 g/dL (1.7-4.1); Glucose 118 mg/dL (80-110); HEMOLYSIS < 15 (0-50); PTT Partial Thromboplastin Tim 27 SECONDS (26.4-36.2); Potassium 3.6 mmol/L (3.4-5.1); Sodium 136 mmol/L (137-145); Total Protein 6.7 g/dL (6.3-8.2)
[2020-10-08 11:23] LABS: Troponin I < 0.012 ng/mL (0.01-0.034)
--- NOTE | 2020-10-08 11:37 | DI.CT.S_ITS ---
PROCEDURE: CT ABDOMEN PELVIS W CON INDICATIONS: Lower abdominal pain/GI bleed TECHNIQUE: After the administration of intravenous contrast, 5 mm thick sections acquired from the diaphragm to the symphysis. 5 mm coronal and sagittal reformats were acquired. For radiation dose reduction, the following was used: automated exposure control, adjustment of mA and/or kV according to patient size. COMPARISON: [facility], CT, ABDOMEN/PELVIS WITH CONTRAST, 11/14/2010, 13:21. FINDINGS: Image quality: Excellent. ABDOMEN: Lung bases: Lung bases are clear. Heart size is normal. Small hiatal hernia. Solid organs: Liver is normal in size and enhancement. Gallbladder is unremarkable. Biliary system is non dilated. Pancreas enhances normally. Spleen is normal in size and enhancement. No adrenal nodules. Kidneys demonstrate normal size and enhancement, without hydronephrosis. Peritoneum and bowel: There is moderate circumferential bowel wall thickening with mild surrounding inflammatory stranding involving the mid transverse colon extending into the distal descending colon. No evidence for free air or abscess formation. Small amount of scattered free fluid within the lower abdomen and pelvis likely reactive in etiology. No rim enhancement. No peritoneal thickening or enhancement. No free air. Nodes and vessels: No retroperitoneal or mesenteric adenopathy by size criteria. Aorta and inferior vena cava are normal in size. Scattered atherosclerotic calcifications of the abdominal aorta and iliac vessels without aneurysmal dilatation. Miscellaneous: No ventral hernias. PELVIS: Genitourinary: Urinary bladder wall thickness appears normal for degree of distension. Miscellaneous: No inguinal hernias. No pelvic adenopathy. Bones: No suspicious bony lesions. No acute vertebral body compression fractures. IMPRESSION: 1. Findings compatible with colitis of the transverse and descending colon likely infectious or inflammatory in etiology. No evidence for perforation or abscess formation. Consider direct visualization to exclude underlying neoplastic process once acute symptoms have resolved. 2. No evidence for bowel obstruction. 3. Small hiatal hernia. 4. Atherosclerosis. 5. Small amount of scattered free fluid likely reactive in etiology. Dictated by: Mohinder Holliday M.D. on 10/08/2020 at 11:48 Approved by: Mohinder Holliday M.D. on 10/08/2020 at 12:00
[2020-10-08] MEDS: SODIUM CHLORIDE 0.9% 500 ML 1000 ML IV (12:27)
[2020-10-08 14:01] LABS: COVID19 -Nasal RAPID Negative (Negative)
--- NOTE | 2020-10-08 15:00 | PC.ADMIT ---
[id number] [facility] Admission Note: Patient came up to floor and ambulated to the bed. Vital signs are stable. Patient educated about the use of call light. Bed alarm is active. Bed is low and locked. Call light within reach. The patient,Donna Cartagena,75 y/o, was given written information regarding hospital policies, unit procedures and contact persons. Patient's smoking status: Former smoker. Vital Signs - 8 hr 10/08/20 10:20 10/08/20 10:22 10/08/20 10:30 Temperature 97.2 F L Pulse Rate 86 69 80 Respiratory Rate 16 Blood Pressure 148/99 H 148/99 H Pulse Oximetry 98 97 97 10/08/20 11:00 10/08/20 11:30 10/08/20 11:46 Temperature Pulse Rate 91 H 78 86 Respiratory Rate Blood Pressure 119/56 L Pulse Oximetry 95 97 96 10/08/20 12:00 10/08/20 12:30 10/08/20 13:00 Temperature Pulse Rate 82 79 79 Respiratory Rate Blood Pressure 163/68 H 150/67 H 153/68 H Pulse Oximetry 96 96 98 10/08/20 13:30 10/08/20 13:31 10/08/20 14:00 Temperature Pulse Rate 93 H 85 81 Respiratory Rate 24 Blood Pressure 204/88 H 172/74 H Pulse Oximetry 97 97 96 10/08/20 14:47 Temperature 98.1 F Pulse Rate 83 Respiratory Rate 16 Blood Pressure 148/73 H Pulse Oximetry 98
--- NOTE | 2020-10-08 17:21 | PC.NURSE ---
Addendum entered by Tiff Craig R.N. 10/08/20 21:16: Pt resting at intervals Denies discomfort. IVF continue as per orders. Tele shows NSR per ICU staff. Call light w/in reach, bed alarm on for pt safety. Continue w/plan of care. Addendum entered by Tiff Craig R.N. 10/08/20 18:38: Orders received for IVF NS @ 100cc/hr via pump into the RAC hung. Pt NPO at this time. Pt voided 300cc pink urine. Original Note: Pt alert/oriented. Denies discomfort at this time. Lungs clear, SpO2 97% RA Tele placed,showing NSR per ICU staff. HL CHARLES intact/patent. No stool as of yet for lab. Call light w/in reach, pt calls apprpriately for needs.
[2020-10-08] MEDS: SODIUM CHLORIDE 0.9% 1,000 ML 100 ML IV (18:15)
--- NOTE | 2020-10-08 18:48 | PM.HP.1 ---
History of Present Illness History of Present Illness Date Patient Seen: 10/08/20 Time Patient Seen: 18:48 Date of Onset of Symptoms: 10/06/20 Chief complaint: nausea/vomiting/diarrhea with bright blood 2days Narrative: Donna Cartagena is a 75 year old female with a past medical history of hypertension as well as orthostatic syncope who presented after multiple episodes of hematochezia. Patient states that 2 days ago she began developing nausea with vomiting that was nonbloody and nonbilious. Shortly after that she began having multiple episodes of bloody diarrhea. This improved somewhat yesterday, but then she subsequently developed a bilateral lower quadrant pressure sensation her abdomen with continued bright red blood per rectum. She denies any fevers, chills, recent antibiotic therapy. She denies any palpitations. She does state that she gets dyspnea on exertion and when she exerts herself she also gets slightly dizzy and orthostatic. She has been to the ER a couple of times and states she had a negative MRI, stress test, and echocardiogram about a year ago. Reports prior C. diff infection 10 years ago without recurrence since. No recent antibiotic therapy. No food fear or weight loss. Does not believe pain is worse with meals but she has not tried much recently. In the emergency room, the patient was mildly hypertensive but the remainder for vital signs were unremarkable. Rectal exam performed in the emergency room revealed jonatan blood. Initial hemoglobin was 14. The patient was admitted for further evaluation, surgery consultation ordered and discussed with Dr. Negrete. Patient History Medical History Hypertension Surgical History Hx of appendectomy Family & Social History Social History: household members none Prior Living Arrangements Apartment/Condo Safety & Behavioral: Feels Safe in Current Yes Environment Been Physically Hurt or No Threatened By a Person Suicidal Ideation Description None Suicide Plan Description No Plan Tobacco & Substance use: Smoking Status Former smoker alcohol intake never Substance Use Type does not use Meds Home Medications and Allergies Home Medications Medication Instructions Recorded Confirmed Type ramipril 5 mg PO DAILY 10/08/20 10/08/20 History Allergies Allergy/AdvReac Type Severity Reaction Status Date / Time Tetanus Toxoid Allergy Unknown Uncoded 11/17/17 12:14 Review of Systems Review of Systems Narrative: All other systems reviewed with the patient and are negative unless otherwise stated. Exam Vital Signs (past 8 hours): - 10/08/20 11:00 10/08/20 11:30 10/08/20 11:46 Temperature Pulse Rate 91 H 78 86 Respiratory Rate Blood Pressure 119/56 L Pulse Oximetry 95 97 96 10/08/20 12:00 10/08/20 12:30 10/08/20 13:00 Temperature Pulse Rate 82 79 79 Respiratory Rate Blood Pressure 163/68 H 150/67 H 153/68 H Pulse Oximetry 96 96 98 10/08/20 13:30 10/08/20 13:31 10/08/20 14:00 Temperature Pulse Rate 93 H 85 81 Respiratory Rate 24 Blood Pressure 204/88 H 172/74 H Pulse Oximetry 97 97 96 10/08/20 14:47 10/08/20 15:48 10/08/20 17:34 Temperature 98.1 F 99.3 F Pulse Rate 83 77 Respiratory Rate 16 20 18 Blood Pressure 148/73 H 178/65 H Pulse Oximetry 98 95 10/08/20 17:36 Temperature Pulse Rate Respiratory Rate Blood Pressure Pulse Oximetry 97 Oxygen Delivery Method Room Air Narrative Exam Narrative: GENERAL APPEARANCE: Well developed, well nourished, in no acute distress. SKIN: Inspection of the skin reveals no rashes, ulcerations or petechiae. HEENT: Normocephalic atraumatic, extraocular muscles are intact, oropharynx is clear and mucous membranes are moist, neck is supple without adenopathy NECK: Supple and symmetric. There was no thyroid enlargement, and no tenderness, or masses were felt. CHEST: Normal AP diameter and normal contour without any kyphoscoliosis. LUNGS: Auscultation of the lungs revealed no wheezes, rhonchi, or rales. CARDIOVASCULAR: There was a regular rate and rhythm without any murmurs, gallops, rubs. Peripheral pulses were 2+ and symmetric. ABDOMEN: Soft and minimally tender in the bilateral lower quadrants, nondistended. MUSCULOSKELETAL: There was no tenderness or effusions noted. Muscle strength and tone were normal. EXTREMITIES: No cyanosis, clubbing or edema. NEUROLOGIC: Alert and oriented x 3. Normal affect. Strength is +5/5 in the Upper Extremities and Lower Extremities Bilaterally. Sensation to touch was normal. Objective ECG Impression: Normal sinus rhythm Inferior infarct , age undetermined Cannot rule out Anterior infarct , age undetermined (inferior q waves uncanged since previous tracings) Imaging CT scan - abdomen: Radiologist's impression: FINDINGS: Image quality: Excellent. ABDOMEN: Lung bases: Lung bases are clear. Heart size is normal. Small hiatal hernia. Solid organs: Liver is normal in size and enhancement. Gallbladder is unremarkable. Biliary system is non dilated. Pancreas enhances normally. Spleen is normal in size and enhancement. No adrenal nodules. Kidneys demonstrate normal size and enhancement, without hydronephrosis. Peritoneum and bowel: There is moderate circumferential bowel wall thickening with mild surrounding inflammatory stranding involving the mid transverse colon extending into the distal descending colon. No evidence for free air or abscess formation. Small amount of scattered free fluid within the lower abdomen and pelvis likely reactive in etiology. No rim enhancement. No peritoneal thickening or enhancement. No free air. Nodes and vessels: No retroperitoneal or mesenteric adenopathy by size criteria. Aorta and inferior vena cava are normal in size. Scattered atherosclerotic calcifications of the abdominal aorta and iliac vessels without aneurysmal dilatation. Miscellaneous: No ventral hernias. PELVIS: Genitourinary: Urinary bladder wall thickness appears normal for degree of distension. Miscellaneous: No inguinal hernias. No pelvic adenopathy. Bones: No suspicious bony lesions. No acute vertebral body compression fractures. IMPRESSION: 1. Findings compatible with colitis of the transverse and descending colon likely infectious or inflammatory in etiology. No evidence for perforation or abscess formation. Consider direct visualization to exclude underlying neoplastic process once acute symptoms have resolved. 2. No evidence for bowel obstruction. 3. Small hiatal hernia. 4. Atherosclerosis. 5. Small amount of scattered free fluid likely reactive in etiology. Labs Result Diagrams: 10/08/20 18:50 10/08/20 10:50 Labs: Laboratory Results - last 24 hr 10/08/20 10/08/20 10/08/20 10:50 10:50 10:50 WBC 24.6 H RBC 4.60 Hgb 14.0 Hct 42.3 MCV 92.1 MCH 30.4 MCHC 33.0 RDW 13.7 Plt Count 271 Neut % (Auto) 82.9 H Lymph % (Auto) 12.1 L [place] % (Auto) 4.2 Eos % (Auto) 0.2 L Baso % (Auto) 0.6 Neut # (Auto) 66463 H Lymph # (Auto) 3000 [place] # (Auto) 1000 H Eos # (Auto) 0 Baso # (Auto) 100 PT 12.7 INR 1.1 APTT 27 Sodium 136 L Potassium 3.6 Chloride 103 Carbon Dioxide 25 BUN 18 H Creatinine 0.96 Estimated GFR 56.4 L BUN/Creatinine Ratio 18.8 Glucose 118 H Calcium 9.1 Total Bilirubin 1.5 H AST 19 ALT 13 Alkaline Phosphatase 90 Total Creatine Kinase 46 CK-MB (CK-2) TNP CK-MB (CK-2) Rel Index TNP Troponin I < 0.012 Total Protein 6.7 Albumin 4.0 Globulin 2.7 Albumin/Globulin Ratio 1.5 SARS-CoV-2 (PCR) Blood Type Antibody Screen 10/08/20 10/08/20 10:50 13:33 WBC RBC Hgb Hct MCV MCH MCHC RDW Plt Count Neut % (Auto) Lymph % (Auto) [place] % (Auto) Eos % (Auto) Baso % (Auto) Neut # (Auto) Lymph # (Auto) [place] # (Auto) Eos # (Auto) Baso # (Auto) PT INR APTT Sodium Potassium Chloride Carbon Dioxide BUN Creatinine Estimated GFR BUN/Creatinine Ratio Glucose Calcium Total Bilirubin AST ALT Alkaline Phosphatase Total Creatine Kinase CK-MB (CK-2) CK-MB (CK-2) Rel Index Troponin I Total Protein Albumin Globulin Albumin/Globulin Ratio SARS-CoV-2 (PCR) Negative Blood Type B Positive Antibody Screen Negative Assessment & Plan Assessment & Plan narrative: Donna Cartagena is a 75 year old female with a past medical history of hypertension as well as orthostatic syncope who presented after multiple episodes of hematochezia. 1. Hematochezia, acute, present on admission - trial of clears tonight, differential includes infectious causes including c. diff (prior c. diff infection >10 years ago), acute mesenteric ischemia, amongst others. Clears should be stopped if worsening abdominal pain as this would raise the possibility of ischemic colitis. - GI panel ordered - CT with mild colonic thickening in the splenic flexure, WBC of 24 slightly improved to 23 with fluids. - general surgery, dr. negrete, consulted. - continue telemetery to monitor for evidence of afib. 2. Colitis, acute, present on admission - workup as noted above. Will start oral vancomycin empirically given leukocytosis on admission and remote history of c. diff infection. 3. Hypertension, chronic, present on admission - hold home rampiril at this time given bleeding Code: Full as discussed with the patient. Patient has a DPOA who was a member at her [employer]. She does not recall that person's name at the moment. She is a Gnosticist and does not want any blood products or transfusions. DVT: SCDs given hematochezia Dispo: Admitted under observation status COVID-19 COVID-19 status: Negative Quality VTE Deep Vein Thrombosis/Pulmonary Embolism Present on Admission: No
[2020-10-08 19:02] LABS: Add Manual Diff / Slide Review NO; Basophils Absolute Auto 200 /uL (0-100); Basophils Percent Auto 0.9 % (0-2); Eosinophils Absolute Auto 100 /uL (0-450); Eosinophils Percent Auto 0.6 % (2-4); Hematocrit 39.1 % (36-46); Hemoglobin 12.7 g/dL (12.0-16.0); Lymphocytes Absolute Auto 3600 /uL (1100-4500); Lymphocytes Percent Auto 15.9 % (25-40); Mean Corpuscular HGB Conc 32.6 % (30-36); Mean Corpuscular Hemoglobin 30.1 PG (26-34); Mean Corpuscular Volume 92.3 fL (80-100); Monocytes Absolute Auto 900 /uL (0-900); Monocytes Percent Auto 3.9 % (3-14); Neutrophils Absolute Auto 17700 /uL (1500-7000); Neutrophils Percent Auto 78.7 % (50-75); Platelet Count 254 X10^3/uL (150-400); Red Blood Cell Count 4.24 X10^6/uL (4.0-5.2); Red Cell Distribution Width 13.4 % (11.6-14.8); White Blood Cell Count 22.5 X10^3/uL (4.5-11.0)
[2020-10-08] MEDS: VANCOMYCIN 125 MG CAPSULE PO (19:13)
[2020-10-09] VITALS (12 sets, daily range): BP systolic 133–208; BP diastolic 60–82; PULSE 61–73; RESP 17–20; TEMP 35.9–37.4; O2SAT 94–97
[2020-10-09] MEDS: VANCOMYCIN 125 MG CAPSULE PO ×2 (01:12→07:39)
[2020-10-09] MEDS: SODIUM CHLORIDE 0.9% 1,000 ML 100 ML IV ×2 (05:16→16:43)
[2020-10-09 05:30] LABS: Add Manual Diff / Slide Review NO; Basophils Absolute Auto 0 /uL (0-100); Basophils Percent Auto 0.2 % (0-2); Eosinophils Absolute Auto 300 /uL (0-450); Eosinophils Percent Auto 1.7 % (2-4); Hematocrit 37.3 % (36-46); Hemoglobin 12.2 g/dL (12.0-16.0); Lymphocytes Absolute Auto 3600 /uL (1100-4500); Lymphocytes Percent Auto 20.2 % (25-40); Mean Corpuscular HGB Conc 32.7 % (30-36); Mean Corpuscular Hemoglobin 30.3 PG (26-34); Mean Corpuscular Volume 92.6 fL (80-100); Monocytes Absolute Auto 800 /uL (0-900); Monocytes Percent Auto 4.6 % (3-14); Neutrophils Absolute Auto 13200 /uL (1500-7000); Neutrophils Percent Auto 73.3 % (50-75); Platelet Count 219 X10^3/uL (150-400); Red Blood Cell Count 4.03 X10^6/uL (4.0-5.2); Red Cell Distribution Width 13.7 % (11.6-14.8)
[2020-10-09 05:36] LABS: Alanine Aminotransferase 8 IU/L (<35); Albumin 3.1 g/dL (3.5-5.0); Albumin Globulin Ratio 1.3 (1.0-2.8); Alkaline Phosphatase 67 U/L (38-126); Aspartate Aminotransferase 15 IU/L (14-36); BUN Creatinine Ratio 16.9 (6-22); Bilirubin Total 0.9 mg/dL (0.2-1.3); Bilirubin Unconjugated 0.8 mg/dL (0.0-1.1); Blood Urea Nitrogen 13 mg/dL (7-17); Calcium 8.2 mg/dL (8.4-10.2); Carbon Dioxide 26 mmol/L (22-32); Chloride 107 mmol/L (98-107); Estimated Glomerular Filt Rate > 60.0 mL/min (>60); Globulin 2.4 g/dL (1.7-4.1); Glucose 88 mg/dL (80-110); HEMOLYSIS < 15 (0-50); Potassium 3.5 mmol/L (3.4-5.1); Sodium 136 mmol/L (137-145); Total Protein 5.5 g/dL (6.3-8.2)
[2020-10-09 08:24] LABS: Adenovirus F 40/41 Not Detected (Not Detect); Astrovirus Not Detected (Not Detect); Campylobacter Not Detected (Not Detect); Clostridium difficile toxin AB Not Detected (Not Detect); Cryptosporidium Not Detected (Not Detect); Cyclospora cayetanensis Not Detected (Not Detect); Entamoeba histolytica Not Detected (Not Detect); Enteroaggregative E.coli Not Detected (Not Detect); Enteropathogenic E.coli Not Detected (Not Detect); Enterotoxigenic E.coli It/st Not Detected (Not Detect); Giardia lamblia Not Detected (Not Detect); Norovirus GI/GII Not Detected (Not Detect); Plesiomonsa shigelloides Not Detected (Not Detect); Rotavirus A Not Detected (Not Detect); Salmonella Not Detected (Not Detect); Sapovirus Not Detected (Not Detect); Shiga-like toxin-prod E.coli Not Detected (Not Detect); Shigella/Enteroinvasive E.coli Not Detected (Not Detect); Vibrio Not Detected (Not Detect); Vibrio cholerae Not Detected (Not Detect); Yersinia enterocolitica Not Detected (Not Detect)
--- NOTE | 2020-10-09 10:32 | PC.NURSE ---
Addendum entered by Génesis Neely R.N. 10/09/20 14:10: pt reporting generalized weakness after several watery BM's. Denying pain. Home BP medication re-started this shift after AM BP 208/82. Rechecked 177/81. Original Note: AM shift note. pt AO and receptive to care. Up SBA to BR due to IV pole and steady on feet. IND with ADL's. NS infusing to right AC at 100/hr. Loose, watery stools positive giuac. Denying pain but states that she gets intermittent pressure to bowels. Tele: NSR. C.diff negative. Urine is concentrated with mild odor.
--- NOTE | 2020-10-09 11:34 | CM.DANOTE ---
DCP: Case received, EMR reviewed. Called patient's room, since she is on precautions. Introduced self and role. Was able to obtain information from patient regarding her baseline activity status prior to hospitalization, as well as her current living situation. DCP assessment completed with information currently available. Patient is a 75 year old male who admitted yesterday afternoon to the care of the hospitalist team. PCP: JACQUIE Oliver at [facility]. Payer: confirmed: Medicare/[employer]. Patient came to the hospital via private vehicle secondary to having nausea and vomiting, as well as diarrhea with bleeding. Patient holds diagnosis of colitis, as well as potential c-diff. Patient is [employer], and her DPOA is a member of her [employer]. Called patient's room, since she is on precautions, to ask her about her baseline activity status, and if she resides alone. Patient confirmed that she does reside alone in [place], and is a . She is independent at her baseline, and drives. She does not use any DME supplies. P: DCP to continue to follow. Patient should be able to go home when she is medically stable. Catie Pereira RN/Nuclear Test Technician
--- NOTE | 2020-10-09 12:05 | P.CONS_ITS ---
History of Present Illness Consult details Date Patient Seen: 10/09/20 Time Patient Seen: 11:05 Chief complaint: nausea/vomiting/diarrhea with bright blood 2days Reason for consult: gi bleed Requesting provider: Vimal Khalil Narrative: 75 yo female with 2 day h/o diarrhea and bloody stools, no previous event. Today is day 3 and the stool is back to brown. no anticoagulation meds at home. No dizziness, mild abdominal pain left sided. Patient is Jehovah witness and accepts no iron or blood. no fevers. Meds Home Medications and Allergies Home Medications Medication Instructions Recorded Confirmed Type ramipril 5 mg PO DAILY 10/08/20 10/08/20 History Allergies Allergy/AdvReac Type Severity Reaction Status Date / Time Tetanus Toxoid Allergy Unknown Uncoded 11/17/17 12:14 Review of Systems Review of Systems ROS: Yes All systems reviewed with the patient and are negative except as otherwise documented Gastrointestinal Gastrointestinal: Reports abdominal pain, Reports hematochezia and Reports change in bowel habits Neurologic Neurologic: Reports system reviewed and no additional complaints, except as documented Psychiatric Psychiatric: Reports change in appetite Exam Vital Signs (past 8 hours): - 10/09/20 04:40 10/09/20 05:00 10/09/20 08:00 Temperature 98.0 F 97.9 F Pulse Rate 72 61 Respiratory Rate 18 17 Blood Pressure 153/73 H 133/75 Pulse Oximetry 96 96 97 10/09/20 09:00 10/09/20 11:30 Temperature 98.3 F Pulse Rate 68 Respiratory Rate 17 Blood Pressure 208/82 H Pulse Oximetry 97 95 Oxygen Delivery Method Room Air Oxygen Flow Rate 0 Const General: cooperative and comfortable [facility] Head: normocephalic and atraumatic Eyes Sclera: sclerae normal Neck Neck: trachea midline and supple Chest Chest: normal inspection of the chest Resp Effort & Inspection: normal respiratory effort and able to speak in complete sentences Cardio Rate: regular rate Rhythm: regular rhythm GI Palpation: soft, no hepatosplenomegaly and tender (left sided) Skin General: no rashes or lesions noted Neuro General: patient alert, patient awake and tone normal Speech: speech normal Extrem General: capillary refill normal and no calf tenderness Psych Judgment: judgment good Objective Labs Result Diagrams: 10/09/20 04:45 10/09/20 04:45 Labs: Laboratory Results - last 24 hr 10/08/20 10/08/20 10/09/20 13:33 18:50 04:45 WBC 22.5 H 18.0 H RBC 4.24 4.03 Hgb 12.7 12.2 Hct 39.1 37.3 MCV 92.3 92.6 MCH 30.1 30.3 MCHC 32.6 32.7 RDW 13.4 13.7 Plt Count 254 219 Neut % (Auto) 78.7 H 73.3 Lymph % (Auto) 15.9 L 20.2 L [place] % (Auto) 3.9 4.6 Eos % (Auto) 0.6 L 1.7 L Baso % (Auto) 0.9 0.2 Neut # (Auto) 58537 H 24574 H Lymph # (Auto) 3600 3600 [place] # (Auto) 900 800 Eos # (Auto) 100 300 Baso # (Auto) 200 H 0 Sodium Potassium Chloride Carbon Dioxide BUN Creatinine Estimated GFR BUN/Creatinine Ratio Glucose Calcium Magnesium Total Bilirubin Conjugated Bilirubin Unconjugated Bilirubin AST ALT Alkaline Phosphatase Total Protein Albumin Globulin Albumin/Globulin Ratio Stl C. cayetanensis PCR Stool Rotavirus (PCR) Stool Adenovirus (PCR) Stool Astrovirus (PCR) Stool Cryptosporidium PCR Stl E.coli Shiga Tox PCR St Sh/Enteroin Ecoli PCR Stool E coli O157 PCR Stl Enterotoxigenic E PCR Stool EPEC (PCR) Stl E. histolytica PCR Stool Giardia Lamblia PCR Stool Sapovirus (PCR) Stl P. shigelloides PCR St Y.enterocolitica PCR Stool Vibrio (PCR) Stl Vibrio cholerae PCR Stl Enteroaggr Ecoli PCR Stl Norovirus GI/GII PCR Campylobacter (PCR) C. difficile Tox (PCR) SARS-CoV-2 (PCR) Negative Salmonella (PCR) 10/09/20 10/09/20 04:45 05:00 WBC RBC Hgb Hct MCV MCH MCHC RDW Plt Count Neut % (Auto) Lymph % (Auto) [place] % (Auto) Eos % (Auto) Baso % (Auto) Neut # (Auto) Lymph # (Auto) [place] # (Auto) Eos # (Auto) Baso # (Auto) Sodium 136 L Potassium 3.5 Chloride 107 Carbon Dioxide 26 BUN 13 Creatinine 0.77 Estimated GFR > 60.0 BUN/Creatinine Ratio 16.9 Glucose 88 Calcium 8.2 L Magnesium 2.0 Total Bilirubin 0.9 Conjugated Bilirubin 0.0 Unconjugated Bilirubin 0.8 AST 15 ALT 8 Alkaline Phosphatase 67 Total Protein 5.5 L Albumin 3.1 L Globulin 2.4 Albumin/Globulin Ratio 1.3 Stl C. cayetanensis PCR Not detected Stool Rotavirus (PCR) Not detected Stool Adenovirus (PCR) Not detected Stool Astrovirus (PCR) Not detected Stool Cryptosporidium PCR Not detected Stl E.coli Shiga Tox PCR Not detected St Sh/Enteroin Ecoli PCR Not detected Stool E coli O157 PCR Not detected Stl Enterotoxigenic E PCR Not detected Stool EPEC (PCR) Not detected Stl E. histolytica PCR Not detected Stool Giardia Lamblia PCR Not detected Stool Sapovirus (PCR) Not detected Stl P. shigelloides PCR Not detected St Y.enterocolitica PCR Not detected Stool Vibrio (PCR) Not detected Stl Vibrio cholerae PCR Not detected Stl Enteroaggr Ecoli PCR Not detected Stl Norovirus GI/GII PCR Not detected Campylobacter (PCR) Not detected C. difficile Tox (PCR) Not detected SARS-CoV-2 (PCR) Salmonella (PCR) Not detected Assessment & Plan Assessment and plan (1) Lower gastrointestinal hemorrhage: Problem details: left sided colitis with elevated leukocytosis. CT scan reviewed personally. thickened colon from transverse into descending. pattern with bleeding is consistent with ischemic colitis. leukocytosis not a normal component and may be from combination of dehydration and other non lethal infection. No C dif and no Covid. Plan: supportive management with good hydration. recommend colonoscopy in 8 weeks if improved. Patient refused Iron supplements but agrees to education on foods high in iron. advance diet as tolerated. Status: Acute
[2020-10-09] MEDS: RAMIPRIL 2.5 MG 5 MG PO (13:09)
--- NOTE | 2020-10-09 14:25 | P.PN_ITS ---
Subjective Subjective Date Patient Seen: 10/09/20 Time Patient Seen: 14:25 Interval history: Donna Cartagena is a 75 year old female with a past medical history of hypertension as well as orthostatic syncope who presented after multiple episodes of hematochezia. This has slowed to loose stools with a very mild amount of blood mixed in. She still guaiac positive. Surgery is hoping that will be improvement in her symptoms and that she will be able to be discharged home with the outpatient colonoscopy in about 8 weeks. Her leukocytosis has improved to 18,000 thousand. She still has some cramping bilateral lower quadrant abdominal pain. Will begin to advance her diet as tolerated, with hope for discharge home in the next day or 2 as her symptoms hopefully improve. Exam Vital Signs (past 8 hours): - 10/09/20 08:00 10/09/20 09:00 10/09/20 11:30 Temperature 97.9 F 98.3 F Pulse Rate 61 68 Respiratory Rate 17 17 Blood Pressure 133/75 208/82 H Pulse Oximetry 97 97 95 10/09/20 13:00 10/09/20 14:19 Temperature Pulse Rate 73 Respiratory Rate Blood Pressure 177/81 H Pulse Oximetry 95 Oxygen Delivery Method Room Air Oxygen Flow Rate 0 Narrative Exam Narrative: GENERAL APPEARANCE: Well developed, well nourished, in no acute distress. SKIN: Inspection of the skin reveals no rashes, ulcerations or petechiae. HEENT: Normocephalic atraumatic, extraocular muscles are intact, oropharynx is clear and mucous membranes are moist, neck is supple without adenopathy NECK: Supple and symmetric. There was no thyroid enlargement, and no tenderness, or masses were felt. CHEST: Normal AP diameter and normal contour without any kyphoscoliosis. LUNGS: Auscultation of the lungs revealed no wheezes, rhonchi, or rales. CARDIOVASCULAR: There was a regular rate and rhythm without any murmurs, gallops, rubs. Peripheral pulses were 2+ and symmetric. ABDOMEN: Soft and minimally tender in the bilateral lower quadrants, nondistended. MUSCULOSKELETAL: There was no tenderness or effusions noted. Muscle strength and tone were normal. EXTREMITIES: No cyanosis, clubbing or edema. NEUROLOGIC: Alert and oriented x 3. Normal affect. Strength is +5/5 in the Upper Extremities and Lower Extremities Bilaterally. Sensation to touch was normal. Objective Labs Result Diagrams: 10/09/20 04:45 10/09/20 04:45 Labs: Laboratory Results - last 24 hr 10/08/20 10/09/20 10/09/20 18:50 04:45 04:45 WBC 22.5 H 18.0 H RBC 4.24 4.03 Hgb 12.7 12.2 Hct 39.1 37.3 MCV 92.3 92.6 MCH 30.1 30.3 MCHC 32.6 32.7 RDW 13.4 13.7 Plt Count 254 219 Neut % (Auto) 78.7 H 73.3 Lymph % (Auto) 15.9 L 20.2 L [place] % (Auto) 3.9 4.6 Eos % (Auto) 0.6 L 1.7 L Baso % (Auto) 0.9 0.2 Neut # (Auto) 08289 H 37390 H Lymph # (Auto) 3600 3600 [place] # (Auto) 900 800 Eos # (Auto) 100 300 Baso # (Auto) 200 H 0 Sodium 136 L Potassium 3.5 Chloride 107 Carbon Dioxide 26 BUN 13 Creatinine 0.77 Estimated GFR > 60.0 BUN/Creatinine Ratio 16.9 Glucose 88 Calcium 8.2 L Magnesium 2.0 Total Bilirubin 0.9 Conjugated Bilirubin 0.0 Unconjugated Bilirubin 0.8 AST 15 ALT 8 Alkaline Phosphatase 67 Total Protein 5.5 L Albumin 3.1 L Globulin 2.4 Albumin/Globulin Ratio 1.3 Stl C. cayetanensis PCR Stool Rotavirus (PCR) Stool Adenovirus (PCR) Stool Astrovirus (PCR) Stool Cryptosporidium PCR Stl E.coli Shiga Tox PCR St Sh/Enteroin Ecoli PCR Stool E coli O157 PCR Stl Enterotoxigenic E PCR Stool EPEC (PCR) Stl E. histolytica PCR Stool Giardia Lamblia PCR Stool Sapovirus (PCR) Stl P. shigelloides PCR St Y.enterocolitica PCR Stool Vibrio (PCR) Stl Vibrio cholerae PCR Stl Enteroaggr Ecoli PCR Stl Norovirus GI/GII PCR Campylobacter (PCR) C. difficile Tox (PCR) Salmonella (PCR) 10/09/20 05:00 WBC RBC Hgb Hct MCV MCH MCHC RDW Plt Count Neut % (Auto) Lymph % (Auto) [place] % (Auto) Eos % (Auto) Baso % (Auto) Neut # (Auto) Lymph # (Auto) [place] # (Auto) Eos # (Auto) Baso # (Auto) Sodium Potassium Chloride Carbon Dioxide BUN Creatinine Estimated GFR BUN/Creatinine Ratio Glucose Calcium Magnesium Total Bilirubin Conjugated Bilirubin Unconjugated Bilirubin AST ALT Alkaline Phosphatase Total Protein Albumin Globulin Albumin/Globulin Ratio Stl C. cayetanensis PCR Not detected Stool Rotavirus (PCR) Not detected Stool Adenovirus (PCR) Not detected Stool Astrovirus (PCR) Not detected Stool Cryptosporidium PCR Not detected Stl E.coli Shiga Tox PCR Not detected St Sh/Enteroin Ecoli PCR Not detected Stool E coli O157 PCR Not detected Stl Enterotoxigenic E PCR Not detected Stool EPEC (PCR) Not detected Stl E. histolytica PCR Not detected Stool Giardia Lamblia PCR Not detected Stool Sapovirus (PCR) Not detected Stl P. shigelloides PCR Not detected St Y.enterocolitica PCR Not detected Stool Vibrio (PCR) Not detected Stl Vibrio cholerae PCR Not detected Stl Enteroaggr Ecoli PCR Not detected Stl Norovirus GI/GII PCR Not detected Campylobacter (PCR) Not detected C. difficile Tox (PCR) Not detected Salmonella (PCR) Not detected PFSH Medical History Hypertension Surgical History Hx of appendectomy Social History household members: none Smoking Status: Former smoker alcohol intake: never Assessment & Plan Assessment & Plan narrative: Donna Cartagena is a 75 year old female with a past medical history of hypertension as well as orthostatic syncope who presented after multiple episodes of hematochezia. 1. Hematochezia, acute, present on admission - CT with mild colonic thickening in the splenic flexure, WBC of 24 slightly improved to 18.0 today. - general surgery, dr. negrete, consulted. Recommend ideally outpatient c- scope in 8 weeks if improved. High concern for ischemic colitis with fluids. Differential also includes malignancy, non-infectious and infectious causes though infectious less likely given negative GI panel. - continue telemetery to monitor for evidence of afib. - empirically started on vancomycin PO, will stop at this time given negative GI panel. - Hg trend 14 > 12.7 > 12.2. Will continue to monitor. Patient's symptoms improving with fluids. Continue CLD and advance as tolerated. No transfusions or iron supplementation per patient's advent beliefs (Pentecostalism). 2. Colitis, acute, present on admission - as discussed above. 3. Hypertension, chronic, present on admission - hold home rampiril at this time given bleeding Code: Full as discussed with the patient. Patient has a DPOA who was a member at her [employer]. She does not recall that person's name at the moment. She is a Roman Catholic and does not want any blood products or transfusions. DVT: SCDs given hematochezia Dispo: Admitted under observation status COVID-19 COVID-19 status: Negative Quality VTE Deep Vein Thrombosis/Pulmonary Embolism Present on Admission: No
--- NOTE | 2020-10-09 20:55 | PC.NURSE ---
pt rates her pain 2/10. she reports her pain increased when she is trying to have a bowel movement. watery stool, guaiac positive. pain slightly increased when she had her clear liquids for dinner. IVF infusing. bed alarm active. call light in reach.
[2020-10-10] VITALS (8 sets, daily range): BP systolic 130–189; BP diastolic 65–78; PULSE 65–69; RESP 17–20; TEMP 36.6–37.6; O2SAT 95–97
[2020-10-10] MEDS: SODIUM CHLORIDE 0.9% 1,000 ML 100 ML IV ×2 (03:41→13:54)
[2020-10-10 05:24] LABS: Add Manual Diff / Slide Review NO; Basophils Absolute Auto 100 /uL (0-100); Basophils Percent Auto 1.3 % (0-2); Eosinophils Absolute Auto 300 /uL (0-450); Eosinophils Percent Auto 2.9 % (2-4); Hematocrit 36.2 % (36-46); Hemoglobin 12.1 g/dL (12.0-16.0); Lymphocytes Absolute Auto 2900 /uL (1100-4500); Lymphocytes Percent Auto 27.8 % (25-40); Mean Corpuscular HGB Conc 33.4 % (30-36); Mean Corpuscular Hemoglobin 30.8 PG (26-34); Mean Corpuscular Volume 92.3 fL (80-100); Monocytes Absolute Auto 600 /uL (0-900); Monocytes Percent Auto 5.6 % (3-14); Neutrophils Absolute Auto 6600 /uL (1500-7000); Neutrophils Percent Auto 62.4 % (50-75); Platelet Count 243 X10^3/uL (150-400); Red Blood Cell Count 3.92 X10^6/uL (4.0-5.2); Red Cell Distribution Width 13.1 % (11.6-14.8); White Blood Cell Count 10.6 X10^3/uL (4.5-11.0)
[2020-10-10 05:36] LABS: Alanine Aminotransferase 7 IU/L (<35); Albumin 2.8 g/dL (3.5-5.0); Albumin Globulin Ratio 1.2 (1.0-2.8); Alkaline Phosphatase 59 U/L (38-126); Aspartate Aminotransferase 13 IU/L (14-36); BUN Creatinine Ratio 10.6 (6-22); Bilirubin Total 0.7 mg/dL (0.2-1.3); Bilirubin Unconjugated 0.7 mg/dL (0.0-1.1); Blood Urea Nitrogen 7 mg/dL (7-17); Carbon Dioxide 26 mmol/L (22-32); Chloride 109 mmol/L (98-107); Estimated Glomerular Filt Rate > 60.0 mL/min (>60); Globulin 2.3 g/dL (1.7-4.1); Glucose 96 mg/dL (80-110); HEMOLYSIS < 15 (0-50); Magnesium 1.8 mg/dL (1.6-2.3); Potassium 3.4 mmol/L (3.4-5.1); Sodium 137 mmol/L (137-145); Total Protein 5.1 g/dL (6.3-8.2)
[2020-10-10] MEDS: RAMIPRIL 2.5 MG 10 MG PO (09:27)
--- NOTE | 2020-10-10 14:24 | PC.NURSE ---
BP elevated 186/66, all other vitals stable. A&O x3. Pain 1/10 in lower abdomen that comes and goes. 1 person SBA. PIV left forearm, NS @ 100. Loose stools. Voiding regularly. Tolerated eating breakfast and lunch well. Tele sinus rhythm.
--- NOTE | 2020-10-10 15:56 | PM.DS.1 ---
History of Present Illness History of Present Illness Date Patient Seen: 10/10/20 Time Patient Seen: 15:56 Chief complaint: nausea/vomiting/diarrhea with bright blood 2days Narrative: Donna Cartagena is a 75 year old female with a past medical history of hypertension as well as orthostatic syncope who presented after multiple episodes of hematochezia. Patient states that 2 days ago she began developing nausea with vomiting that was nonbloody and nonbilious. Shortly after that she began having multiple episodes of bloody diarrhea. This improved somewhat yesterday, but then she subsequently developed a bilateral lower quadrant pressure sensation her abdomen with continued bright red blood per rectum. She denies any fevers, chills, recent antibiotic therapy. She denies any palpitations. She does state that she gets dyspnea on exertion and when she exerts herself she also gets slightly dizzy and orthostatic. She has been to the ER a couple of times and states she had a negative MRI, stress test, and echocardiogram about a year ago. Reports prior C. diff infection 10 years ago without recurrence since. No recent antibiotic therapy. No food fear or weight loss. Does not believe pain is worse with meals but she has not tried much recently. In the emergency room, the patient was mildly hypertensive but the remainder for vital signs were unremarkable. Rectal exam performed in the emergency room revealed jonatan blood. Initial hemoglobin was 14. The patient was admitted for further evaluation, surgery consultation ordered and discussed with Dr. Negrete. Discharge Providers Provider Date of admission: 10/08/20 13:35 Discharge Date: 10/10/20 Primary care physician: Camelia Flores PA-C Consults: 10/08/20 16:20 Consult to General Surgery Routine Comment: Consulting Provider: Kasia Negrete Reason for consultation: lower GI bleeding Discharge provider: Vimal Khalil DO Summary Hospital Course Discharge Diagnosis: See hospital course by problem list noted below. Hospital Course: Donna Cartagena is a 75 year old female with a past medical history of hypertension as well as orthostatic syncope who presented after multiple episodes of hematochezia. 1. Hematochezia, acute, present on admission, improved - CT with mild colonic thickening in the splenic flexure, WBC of 24 slightly improved to 18.0 then normal on HD#2. Her diet was advanced and she tolerated regular diet without further hematochezia. - general surgery, dr. negrete, consulted. Recommend ideally outpatient c-scope in 8 weeks. High concern for ischemic colitis. Differential also includes malignancy, non-infectious and infectious causes though infectious less likely given negative GI panel. - continued telemetery to monitor for evidence of afib, which was not noted during her hospital stay. - empirically started on vancomycin PO, and stopped after GI panel returned neative. - Hg trend 14 > 12.7 > 12.2 > 12.1. Patient's symptoms improved with fluids and her diet was advanced as noted above. No transfusions or iron supplementation per patient's voodoo beliefs (Ep[employer]alian). - outpatient follow up with surgery recommended. 2. Colitis, acute, present on admission - as discussed above. 3. Hypertension, chronic, present on admission - initially held home ramipril but patient actually became more hypertensive. Recommend increasing to 10 mg daily on discharge. Follow up with PCP. Exam Vital Signs (past 8 hours): - 10/10/20 08:00 10/10/20 09:00 10/10/20 12:00 Temperature 99.6 F 99.6 F Pulse Rate 65 67 Respiratory Rate 20 20 Blood Pressure 185/78 H 186/66 H Pulse Oximetry 97 97 97 Oxygen Delivery Method Room Air Oxygen Flow Rate 0 Narrative Exam Narrative: GENERAL APPEARANCE: Well developed, well nourished, in no acute distress. SKIN: Inspection of the skin reveals no rashes, ulcerations or petechiae. HEENT: Normocephalic atraumatic, extraocular muscles are intact, oropharynx is clear and mucous membranes are moist, neck is supple without adenopathy NECK: Supple and symmetric. There was no thyroid enlargement, and no tenderness, or masses were felt. CHEST: Normal AP diameter and normal contour without any kyphoscoliosis. LUNGS: Auscultation of the lungs revealed no wheezes, rhonchi, or rales. CARDIOVASCULAR: There was a regular rate and rhythm without any murmurs, gallops, rubs. Peripheral pulses were 2+ and symmetric. ABDOMEN: Soft and minimally tender in the bilateral lower quadrants, nondistended. MUSCULOSKELETAL: There was no tenderness or effusions noted. Muscle strength and tone were normal. EXTREMITIES: No cyanosis, clubbing or edema. NEUROLOGIC: Alert and oriented x 3. Normal affect. Strength is +5/5 in the Upper Extremities and Lower Extremities Bilaterally. Sensation to touch was normal. Objective Labs Result Diagrams: 10/10/20 05:05 10/10/20 05:05 Labs: Laboratory Results - last 24 hr 10/10/20 10/10/20 05:05 05:05 WBC 10.6 RBC 3.92 L Hgb 12.1 Hct 36.2 MCV 92.3 MCH 30.8 MCHC 33.4 RDW 13.1 Plt Count 243 Neut % (Auto) 62.4 Lymph % (Auto) 27.8 Baxter % (Auto) 5.6 Eos % (Auto) 2.9 Baso % (Auto) 1.3 Neut # (Auto) 6600 Lymph # (Auto) 2900 Baxter # (Auto) 600 Eos # (Auto) 300 Baso # (Auto) 100 Sodium 137 Potassium 3.4 Chloride 109 H Carbon Dioxide 26 BUN 7 Creatinine 0.66 Estimated GFR > 60.0 BUN/Creatinine Ratio 10.6 Glucose 96 Calcium 8.0 L Magnesium 1.8 Total Bilirubin 0.7 Conjugated Bilirubin 0.0 Unconjugated Bilirubin 0.7 AST 13 L ALT 7 Alkaline Phosphatase 59 Total Protein 5.1 L Albumin 2.8 L Globulin 2.3 Albumin/Globulin Ratio 1.2 PFSH Medical History Hypertension Surgical History Hx of appendectomy Social History household members: none Smoking Status: Former smoker alcohol intake: never Discharge Plan Discharge Plan Patient Disposition: Home Provider Discharge Comment: You were admitted to the hospital after an episode of bloody stools. These stopped without interventions. There was no evidence of infection, other possibilities include cancer, lack of blood flow, or non-infectious inflammatory causes. Surgery recommended a colonoscopy in about 8 weeks, please call their office to make a follow up appointment. Your blood pressures were elevated, I have increased your dose of ramipril, I recommend that you check your BP at home and follow up with your PCP to check on your symptoms in about a week. Try and stay well hydrated. Discharge orders & Medications Prescriptions: New ramipril 10 mg capsule 10 mg PO DAILY 30 Days Qty: 30 RF: 0 Discontinued ramipril 5 mg capsule 5 mg PO DAILY RF: 0 Follow up/Referrals: Camelia Flores PA-C [Primary Care Provider] - Kasia Negrete MD [Physician] - 6 Weeks (for colonoscopy in 8 weeks) Diet/Activity/Treatments Diet: Diet as Tolerated Activity: As tolerated Visit Report/Discharge Packet Instructions: Gastrointestinal Bleeding Discharge Data Primary Care Provider: Camelia Flores Quality VTE Deep Vein Thrombosis/Pulmonary Embolism Present on Admission: No
--- NOTE | 2020-10-10 17:04 | PC.NURSE ---
Evening Shift Note- Patient discharged home per [facility]. Discharge paperwork and education reviewed with patient and signed. IV line removed and bandaid applied. Tele monitor removed. Patient dressed self and packed up all personal belongings. Patient provided with a POLST form to fill out per patient request. Patients sone picking up patient at ER enterance. Patient left with all personal items at 1650.
== END 2020-10-10 16:50 | disposition home or self-care (01) | DRG 392 ==
LOC: ED 11:26 → AC 13:41
PROVIDERS: Admitting Provider Internal Medicine; Emergency Provider Emergency Medicine; PCP Physician Assistant; Referring Provider Emergency Medicine; Visit Provider Internal Medicine
DX: K52.9 Noninfective gastroenteritis and colitis, unspecified (principal); K55.9 Vascular disorder of intestine, unspecified; I10 Essential (primary) hypertension; Z20.822 Contact with and (suspected) exposure to COVID-19; Z87.891 Personal history of nicotine dependence; Z86.19 Personal history of other infectious and parasitic diseases
CPT/HCPCS: 36415; 74177; 80048; 80053; 80076; 82550; 83735; 84484; 85025; 85610; 85730; 86850; 86900; 86901; 87507; 87635; 93005; 96360; 99232; 99283; 99284; C9803; Q9967

== ENCOUNTER 2022-12-21 14:37 | Emergency (ER) | payer MEDICARE, OTHER, SELFPAY ==
[2020-10-08 14:26] VITALS: BMI 30.1
[2022-12-21] VITALS (22 sets, daily range): BP systolic 175–237; BP diastolic 76–106; PULSE 81–109; RESP 16–59; TEMP 37; O2SAT 92–97; BMI 30.4
--- NOTE | 2022-12-21 14:57 | DI.CT.S_ITS ---
PROCEDURE: CT HEAD/BRAIN WO CON INDICATIONS: fall/hit head TECHNIQUE: Noncontrast 4.5 mm thick angled axial sections acquired from the foramen magnum to the vertex, with coronal and sagittal reformats. For radiation dose reduction, the following was used: automated exposure control, adjustment of mA and/or kV according to patient size. COMPARISON: [facility], CT, HEAD WITHOUT CONTRAST, 11/16/2014, 11:08. FINDINGS: Image quality: There is artifact associated with the metallic earrings. CSF spaces: Basal cisterns are patent. No extra-axial fluid collections. The ventricles are symmetric in size and shape. Brain: No intracranial bleeds or masses. There is cerebral volume loss for age, with resultant ventricular and sulcal prominence. There are periventricular and deep white matter chronic small vessel ischemic changes. Areas of remote lacunar infarcts can be seen involving the basal ganglia on both sides. There is intracranial internal carotid artery atherosclerosis. Skull and face: There is a mild scalp hematoma seen anteriorly and on the left, as on series 2, image 25. No associated calvarial fracture is seen. Calvarium and visualized facial bones appear intact, without suspicious lesions. Sinuses: Visualized sinuses and mastoids are clear. IMPRESSION: Mild left scalp hematoma seen, without an associated calvarial fracture. No acute intracranial hemorrhage is seen. No acute intracranial process is seen. Dictated by: Ag Storey M.D. on 12/21/2022 at 14:24 Approved by: Ag Storey M.D. on 12/21/2022 at 14:26
--- NOTE | 2022-12-21 14:57 | DI.RAD.S_ITS ---
PROCEDURE: XR SHOULDER LT MIN 2V INDICATIONS: fall/pain TECHNIQUE: 3 views of the shoulder were acquired. COMPARISON: [facility], , SHOULDER MINIMUM 2VIEW RIGHT, 11/16/2014, 11:00. FINDINGS: Bones: Anterior inferior left shoulder dislocation. Mild AC degenerative changes. Soft tissues: No suspicious soft tissue calcifications. IMPRESSION: Anterior shoulder dislocation. Please consider post relocation imaging t to evaluate any underlying Hill-Sachs or Bankart fractures. Dictated by: Tyshawn Mccarthy M.D. on 12/21/2022 at 16:22 Approved by: Tyshawn Mccarthy M.D. on 12/21/2022 at 16:23
--- NOTE | 2022-12-21 15:35 | ED_ITS ---
HPI - General Adult General Chief complaint: Fall Stated complaint: fall, head wound, left arm and shoulder pain Time Seen by Provider: 12/21/22 15:06 Source: patient Mode of arrival: Ambulatory History of Present Illness HPI narrative: Patient is a 77-year-old female who is here for evaluation of injuries that she sustained when she was throwing some garbage into a dumpster. She states she turned around. She thinks she got her feet caught on something on the ground and fell forward and hit her head and also injured her left shoulder. There was no loss of consciousness. She is no neck pain. She did sustain some bruising to her left knee and her right elbow. She was placed in a sling in triage. Bandage was placed over the cut to her forehead. Related Data Allergies Allergy/AdvReac Type Severity Reaction Status Date / Time Tetanus Toxoid Allergy Unknown Uncoded 11/17/17 12:14 Review of Systems Constitutional Constitutional: Reports system reviewed and no additional complaints, except as documented ENT Ears, Nose, Mouth, and Throat: Reports system reviewed and no additional complaints, except as documented Cardiovascular Cardiovascular: Reports system reviewed and no additional complaints, except as documented Respiratory Respiratory: Reports system reviewed and no additional complaints, except as documented Gastrointestinal Gastrointestinal: Reports system reviewed and no additional complaints, except as documented Integumentary/Breasts Skin/Breast: Reports system reviewed and no additional complaints, except as documented Neurologic Neurologic: Reports system reviewed and no additional complaints, except as documented Hematologic/Lymphatic On Anticoagulants: Yes Patient History Medical History Hypertension Surgical History Hx of appendectomy Social History household members: none Smoking Status: Former smoker alcohol intake: never Smoking Status: Former smoker Substance Use Type: does not use Exam Initial Vital Signs Initial Vital Signs: Vital Signs Temperature 98.6 F 12/21/22 14:40 Pulse Rate 89 12/21/22 14:40 Respiratory Rate 16 12/21/22 14:40 Blood Pressure 236/105 H 12/21/22 14:40 Pulse Oximetry 97 12/21/22 14:40 Oxygen Delivery Method Room Air 12/21/22 14:40 Const General: cooperative, comfortable and No ill appearing [facility] Head: contusion and laceration (Forehead) Chest Chest: No crepitus and No tenderness Resp Effort & Inspection: normal respiratory effort Auscultation: clear to auscultation bilaterally Cardio Rate: regular rate Rhythm: regular rhythm Back/Spine/Pelvis Cervical Spine: No cervical muscular tenderness and No cervical spinal tendern ess Skin Other: 1 cm laceration to forehead. Contusion to anterior left knee. Neuro General: patient alert, patient awake and patient oriented x3 Extrem Other: Discomfort to the left shoulder. Tingling to the left little finger. Procedures Laceration Repair Laceration 1: Site: face (Forehead) Side (If applicable): left Size (cm): 1 Description: linear Depth: simple, single layer Local Anesthetic: lidocaine 1% and with epi Amount of anesthesia used (mL): 2 Pre-repair: wound explored Skin layer closed with: nylon Number of sutures: 2 Technique: simple, interrupted Orthopedic Joint Reduction Joint #1: Time Out Performed: Yes Side: left Joint Reduction Location: shoulder Analgesia: procedural sedation Shoulder Technique Used (if applicable): Milch Post-reduction neuro exam: no change Post-reduction vascular: no change Post Reduction X-Ray Obtained: Yes Post Reduction X-Ray Results: reduced Splint Applied: No Patient Tolerated Procedure: Well Orthopedic Splinting/Casting Injury #1: Side: left Upper Extremity Injury Location: shoulder Upper Extremity Immobilizer: sling/shoulder immobilizer Post splinting neuro exam: no change Post splinting vascular exam: no change Placed by: Provider Procedural Sedation Consent signed: Yes Indication: fracture/dislocation reduction ASA Class: II Mallampati Airway Classification: Class II Preparation: commercial account executive applied, pulse oximeter, capnometry used, supplemental O2 applied, suction/airway equipment at bedside and IV secured Ketamine dose (mg): 110 Intraservice time/total sedation time (min): 15 ED Sedation Level: Moderate (Concious) Patient Tolerated Procedure: Well Complications: none Scores GCS Marcela coma scale eye opening: Spontaneous Marcela coma scale verbal response: Orientated Marcela coma scale motor response: Obey commands Marcela coma scale total score: 15 Nexus Score for C-Spine Focal Neurologic deficit present: No Midline spinal tenderness present: No Altered level of conciousness present: No Intoxication present: No Distracting Injury Present: No Nexus Criteria for C-spine: 0 Course Orders Ordered: ED Orders 12/21/22 14:57 CT head/brain wo con Stat XR shoulder LT min 2V Stat 12/21/22 16:46 XR shoulder LT min 2V Stat 12/21/22 18:08 Urine Culture Stat Sodium Chloride (Normal Saline 0.9%) 1,000 mls @ 125 mls/hr IV CONT WALTER Last Admin: 12/21/22 16:38 Dose: 125 mls/hr Documented By: AT Discontinued Medications Propofol (Propofol 200 Mg/20 Ml Vial) 100 mg IV NOW ONE Stop: 12/21/22 16:13 Last Admin: 12/21/22 16:40 Dose: 100 mg Documented By: AT Propofol (Propofol 200 Mg/20 Ml Vial) 10 mg IV NOW ONE Stop: 12/21/22 17:09 Last Admin: 12/21/22 16:53 Dose: 10 mg Documented By: AT Vital Signs Vital signs: Vital Signs - 8 hr 12/21/22 14:40 12/21/22 14:52 12/21/22 14:53 Temperature 98.6 F Pulse Rate 89 93 H 89 Respiratory Rate 16 Blood Pressure 236/105 H Pulse Oximetry 97 94 95 Oxygen Delivery Method Room Air Oxygen Flow Rate 12/21/22 14:53 12/21/22 15:00 12/21/22 15:25 Temperature Pulse Rate 85 81 Respiratory Rate Blood Pressure 237/106 H Pulse Oximetry 96 95 Oxygen Delivery Method Room Air Oxygen Flow Rate 12/21/22 15:25 12/21/22 15:30 12/21/22 15:30 Temperature Pulse Rate 86 Respiratory Rate Blood Pressure 226/97 H 223/100 H Pulse Oximetry 95 Oxygen Delivery Method Room Air Oxygen Flow Rate 12/21/22 15:45 12/21/22 15:45 12/21/22 16:30 Temperature Pulse Rate 92 H 95 H Respiratory Rate Blood Pressure 237/106 H Pulse Oximetry 97 95 Oxygen Delivery Method Oxygen Flow Rate 12/21/22 16:31 12/21/22 16:31 12/21/22 16:45 Temperature Pulse Rate 94 H 97 H Respiratory Rate 30 H Blood Pressure 222/97 H Pulse Oximetry 95 92 Oxygen Delivery Method Room Air Oxygen Flow Rate 12/21/22 16:45 12/21/22 16:50 12/21/22 16:50 Temperature Pulse Rate 94 H Respiratory Rate 38 H Blood Pressure 218/91 H 204/91 H Pulse Oximetry 96 Oxygen Delivery Method Nasal Cannula Oxygen Flow Rate 2 12/21/22 16:55 12/21/22 16:55 12/21/22 17:00 Temperature Pulse Rate 92 H Respiratory Rate 59 H Blood Pressure 200/92 H 183/84 H Pulse Oximetry 93 Oxygen Delivery Method Nasal Cannula Oxygen Flow Rate 2 12/21/22 17:00 12/21/22 17:05 12/21/22 17:05 Temperature Pulse Rate 93 H 90 Respiratory Rate 29 H 26 H Blood Pressure 187/80 H Pulse Oximetry 95 96 Oxygen Delivery Method Nasal Cannula Nasal Cannula Oxygen Flow Rate 2 2 12/21/22 17:25 12/21/22 17:10 12/21/22 17:10 Temperature Pulse Rate 95 H 94 H Respiratory Rate 18 24 Blood Pressure 175/76 H Pulse Oximetry 96 Oxygen Delivery Method Room Air Oxygen Flow Rate 12/21/22 17:17 12/21/22 17:17 12/21/22 17:20 Temperature Pulse Rate 103 H 109 H Respiratory Rate 31 H 37 H Blood Pressure 215/98 H Pulse Oximetry 94 92 Oxygen Delivery Method Room Air Oxygen Flow Rate 12/21/22 17:20 12/21/22 17:32 12/21/22 17:32 Temperature Pulse Rate 101 H Respiratory Rate Blood Pressure 229/103 H 220/98 H Pulse Oximetry 93 Oxygen Delivery Method Room Air Oxygen Flow Rate Medical Decision Making Lab Data Lab results reviewed: Yes I reviewed the patient's lab results. Labs: Point of Care Testing Test Results Not applicable Urine Dip Bedside Urine Glucose Negative Bedside Urine Bilirubin - Negative Bedside Urine Ketone - Negative Urine Specific [place] 1.015 Bedside Urine Occult Blood +/- Bedside Urine pH 6.5 Bedside Urine Protein - Negative Bedside Urine Urobilinogen - Negative Bedside Urine Nitrite + Positive Bedside Urine Leukocytes + 70 Esterase Point of care testing: Point of Care Testing Test Results Not applicable Urine Dip Bedside Urine Glucose Negative Bedside Urine Bilirubin - Negative Bedside Urine Ketone - Negative Urine Specific [place] 1.015 Bedside Urine Occult Blood +/- Bedside Urine pH 6.5 Bedside Urine Protein - Negative Bedside Urine Urobilinogen - Negative Bedside Urine Nitrite + Positive Bedside Urine Leukocytes + [address] scan - head: Radiologist's Impression: ROCEDURE:? CT HEAD/BRAIN WO CON ? INDICATIONS:? fall/hit head ? TECHNIQUE:? Noncontrast 4.5 mm thick angled axial sections acquired from the foramen magnum to the vertex, with coronal and sagittal reformats.? For radiation dose reduction, the following was used:? automated exposure control, adjustment of mA and/or kV according to patient size.? ? COMPARISON:? [facility], CT, HEAD WITHOUT CONTRAST, 11/16/2014, 11:08. ? FINDINGS:? Image quality:? There is artifact associated with the metallic earrings. ? ? CSF spaces:? Basal cisterns are patent.? No extra-axial fluid collections.? The ventricles are symmetric in size and shape.? ? Brain:? No intracranial bleeds or masses.? There is cerebral volume loss for age, with resultant ventricular and sulcal prominence.? There are periventricular and deep white matter chronic small vessel ischemic changes.? Areas of remote lacunar infarcts can be seen involving the basal ganglia on both sides.? There is intracranial internal carotid artery atherosclerosis.? ? Skull and face:? There is a mild scalp hematoma seen anteriorly and on the left, as on series 2, image 25. No associated calvarial fracture is seen.? Calvarium and visualized facial bones appear intact, without suspicious lesions.? ? Sinuses:? Visualized sinuses and mastoids are clear.? IMPRESSION:? Mild left scalp hematoma seen, without an associated calvarial fracture. ? No acute intracranial hemorrhage is seen.? ? No acute intracranial process is seen. Extremity x-ray #1: Radiologist's Impression: PROCEDURE:? XR SHOULDER LT MIN 2V ? INDICATIONS:? fall/pain ? TECHNIQUE:? 3 views of the shoulder were acquired.? ? COMPARISON:? [facility], CR, SHOULDER MINIMUM 2VIEW RIGHT, 11/16/2014, 11:00. ? FINDINGS:? ? Bones:? Anterior inferior left shoulder dislocation.? Mild AC degenerative changes. ? Soft tissues:? No suspicious soft tissue calcifications.? ? IMPRESSION:? Anterior shoulder dislocation.? Please consider post relocation imaging t to evaluate any underlying Hill-Sachs or Bankart fractures. Extremity x-ray #2: Radiologist's Impression: PROCEDURE:? XR SHOULDER LT MIN 2V ? INDICATIONS:? Reduction ? TECHNIQUE:? 2 views of the shoulder were acquired.? ? COMPARISON:? [facility], CR, XR SHOULDER LT MIN 2V, 12/21/2022, 15:00.? [facility], CT, CT HEAD/BRAIN WO CON, 12/21/2022, 15:03. ? FINDINGS:? ? Bones:? The left shoulder has now been relocated. ? No displaced fractures are seen.? Age-appropriate bony degenerative changes are seen.? ? Soft tissues:? No suspicious soft tissue calcifications.? The visualized lung demonstrates an unremarkable appearance. ? ? IMPRESSION:? Interval relocation of the left shoulder, without a fracture identified. ? If it would be helpful for clinical management decision making, please consider a dedicated, scheduled shoulder MRI for further evaluation (assuming that there is no contraindication).? MDM Narrative Medical decision making narrative: Left shoulder was relocated under sedation as described above. 110 mg of propofol was used because after 1st attempt shoulder was not reduced she had to be re-dosed. Forehead laceration was closed as described above. This was a mechanical fall. Head CT is unremarkable. Cervical spine is cleared by nexus criteria. No other injuries reported from the event by the patient nor found on the exam. Patient was given return precautions and follow-up instructions. She expressed understanding and agreement plan. Discharge Plan Departure Patient Disposition: Home Clinical Impression: Laceration of forehead, Anterior dislocation of left shoulder, Abrasion of skin Instructions: How to Use a Sling, DI for Shoulder Dislocation, DI for Laceration Repair Activity Restrictions/Additional Instructions: The stitches are not absorbable and do need to be removed in the next 7-10 days. You can go to your primary doctor or the walk-in clinic or back here to the emergency department for that. You can cover with a bandage and use topical antibiotic ointment. You can also shower like normal. The sling is for your comfort. Avoid putting your arm/shoulder in the position that we discussed. You can take Tylenol/ibuprofen for any discomfort. Recommend that you contact the orthopedic doctors with a number provided below for follow-up. Referrals: Camelia Flores PA-C [Primary Care Provider] - Ishmael Escobar MD [Physician] - Stand Alone Forms: Patient Portal/API
[2022-12-21] MEDS: SODIUM CHLORIDE 0.9% 1,000 ML 125 ML IV (16:38)
[2022-12-21] MEDS: propofoL 200 MG/20 ML VIAL 100 MG IV (16:40)
--- NOTE | 2022-12-21 16:46 | DI.RAD.S_ITS ---
PROCEDURE: XR SHOULDER LT MIN 2V INDICATIONS: Reduction TECHNIQUE: 2 views of the shoulder were acquired. COMPARISON: [facility], CR, XR SHOULDER LT MIN 2V, 12/21/2022, 15:00. [facility], CT, CT HEAD/BRAIN WO CON, 12/21/2022, 15:03. FINDINGS: Bones: The left shoulder has now been relocated. No displaced fractures are seen. Age-appropriate bony degenerative changes are seen. Soft tissues: No suspicious soft tissue calcifications. The visualized lung demonstrates an unremarkable appearance. IMPRESSION: Interval relocation of the left shoulder, without a fracture identified. If it would be helpful for clinical management decision making, please consider a dedicated, scheduled shoulder MRI for further evaluation (assuming that there is no contraindication). Dictated by: Ag Storey M.D. on 12/21/2022 at 16:21 Approved by: Ag Storey M.D. on 12/21/2022 at 16:21
[2022-12-21] MEDS: propofoL 200 MG/20 ML VIAL 10 MG IV (16:53)
--- NOTE | 2022-12-21 18:27 | PC.NURSE ---
Dr. Child previously aware of blood pressure readings in the ER. Pt states she used to be on blood pressure medications but let her prescription during the Pandemic. Encouraged pt to follow up with a primary care doctor regarding readings, pt verbalizes understanding of risks, verbalizes importance of follow up.
[2022-12-21 18:41] LABS: Bacteria Urine Many (>30); RBC Urine 0-1/HPF (0-5/HPF); Squamous Epithelial Cell Urine 0-1 /HPF (0-5/HPF); WBC Urine 1-5/HPF (0-5/HPF)
== END 2022-12-21 18:29 | disposition home or self-care (01) ==
PROVIDERS: Emergency Provider Emergency Medicine; PCP Physician Assistant
DX: S01.81XA Laceration without foreign body of other part of head, initial encounter (principal); S43.085A Other dislocation of left shoulder joint, initial encounter; S80.02XA Contusion of left knee, initial encounter; S50.01XA Contusion of right elbow, initial encounter; W18.30XA Fall on same level, unspecified, initial encounter
CPT/HCPCS: 12011; 23650; 70450; 73030; 81003; 81015; 87077; 87086; 87186; 99152; 99285; J2704

== ENCOUNTER 2023-01-05 11:08 | Emergency (ER) | payer MEDICARE, OTHER, SELFPAY ==
[2020-10-08 14:26] VITALS: BMI 30.1
[2023-01-05] VITALS (14 sets, daily range): BP systolic 112–179; BP diastolic 53–90; PULSE 77–99; RESP 18–38; TEMP 36.7; O2SAT 93–97
[2023-01-05 11:57] LABS: Add Manual Diff / Slide Review NO; Basophils Absolute Auto 100 /uL (0-100); Basophils Percent Auto 1.2 % (0-2); Eosinophils Absolute Auto 200 /uL (0-450); Eosinophils Percent Auto 2.7 % (2-4); Hematocrit 41.9 % (36-46); Hemoglobin 14.1 g/dL (12.0-16.0); Lymphocytes Absolute Auto 2400 /uL (1100-4500); Lymphocytes Percent Auto 30.4 % (25-40); Mean Corpuscular HGB Conc 33.6 % (30-36); Mean Corpuscular Hemoglobin 30.7 PG (26-34); Mean Corpuscular Volume 91.2 fL (80-100); Monocytes Absolute Auto 700 /uL (0-900); Monocytes Percent Auto 9.2 % (3-14); Neutrophils Absolute Auto 4500 /uL (1500-7000); Neutrophils Percent Auto 56.5 % (50-75); Platelet Count 376 X10^3/uL (150-400); Red Blood Cell Count 4.59 X10^6/uL (4.0-5.2); Red Cell Distribution Width 13.4 % (11.6-14.8); White Blood Cell Count 7.9 X10^3/uL (4.5-11.0)
[2023-01-05 11:58] LABS: PTT Partial Thromboplastin Tim 27 SECONDS (26-36)
[2023-01-05 12:00] LABS: Alanine Aminotransferase 22 IU/L (<35); Albumin 4.2 g/dL (3.5-5.0); Albumin Globulin Ratio 1.4 (1.0-2.8); Alkaline Phosphatase 92 U/L (38-126); Aspartate Aminotransferase 25 IU/L (14-36); BUN Creatinine Ratio 18.6 (6-22); Bilirubin Total 0.6 mg/dL (0.2-1.3); Blood Urea Nitrogen 18 mg/dL (7-17); Calcium 9.3 mg/dL (8.4-10.2); Carbon Dioxide 28 mmol/L (22-32); Chloride 101 mmol/L (98-107); Creatine Kinase 50 U/L (30-135); Estimated Glomerular Filt Rate 59 mL/min (>60); Globulin 2.9 g/dL (1.7-4.1); Glucose 119 mg/dL (80-110); HEMOLYSIS 17 (0-50); Lipase 94 U/L (23-300); Magnesium 2.1 mg/dL (1.6-2.3); Potassium 3.3 mmol/L (3.4-5.1); Sodium 136 mmol/L (137-145); Total Protein 7.1 g/dL (6.3-8.2)
[2023-01-05 12:12] LABS: Troponin I < 0.012 ng/mL (0.01-0.034)
--- NOTE | 2023-01-05 12:18 | ED.WEAKNESS ---
HPI - Weakness <Higinio Herring PA-C - Last Filed: 01/05/23 18:23> General Chief complaint: Weakness Stated complaint: Weakness and dizzy Time Seen by Provider: 01/05/23 12:03 Source: patient and EMS Mode of arrival: EMS History of Present Illness HPI Narrative: 77-year-old female presents to the ED with 2 days of lightheadedness. Patient has had 2 falls in the last 2 weeks, has been seen in various ED these and has had extensive workup including CT of the head with no acute findings. Patient states that she started feeling somewhat lightheaded yesterday, this morning went to see her doctor in the clinic, they noted that for about 10 minutes, patient suddenly looked pale and was not processing the questions asked of her and was unable to answer them. This caused them to send her to the ED. Patient denies fever, chills, chest pain, shortness of breath, nausea, vomiting, abdominal pain, dysuria, syncope. Patient had also dislocated a shoulder during 1 of her prior falls, following which she has been having left arm pain, which she describes as a neuropathy like pain which goes down to her fingers. She is had some intermittent numbness as well. Related Data Previous Rx's Medication Instructions Recorded gabapentin 100 mg capsule 100 mg PO TID #90 caps 01/05/23 Allergies Allergy/AdvReac Type Severity Reaction Status Date / Time Tetanus Toxoid Allergy Unknown Uncoded 11/17/17 12:14 Review of Systems <Higinio Herring PA-C - Last Filed: 01/05/23 18:23> Review of Systems ROS Unobtainable: All systems reviewed & are unremarkable except as noted in HPI and below Constitutional Constitutional: Denies chills, Denies fatigue, Denies fever(s), Denies frequent falls, Denies lethargy and Denies weakness Eyes Eyes: Denies change in vision, Denies eye discharge, Denies irritation and Denies loss of vision ENT Ears, Nose, Mouth, and Throat: Denies change in voice, Denies dizziness, Denies neck pain, Denies sore throat and Denies throat swelling Cardiovascular Cardiovascular: Denies chest pain, Denies irregular heart rhythm, Reports lightheadedness, Denies palpitations, Denies dyspnea, Denies dyspnea on exertion and Denies orthopnea Respiratory Respiratory: Denies cough, Denies dyspnea, Denies dyspnea on exertion and Denies wheezing Gastrointestinal Gastrointestinal: Denies abdominal pain, Denies change in bowel habits, Denies diarrhea, Denies nausea and Denies vomiting Genitourinary Genitourinary: Denies hematuria, Denies flank pain, Denies urinary incontinence and Denies urinary urgency Musculoskeletal Musculoskeletal: Denies back pain, Denies muscle weakness, Denies neck pain, Denies numbness and Denies tingling Integumentary/Breasts Skin/Breast: Denies pruritus, Denies erythema, Denies rash and Denies wounds Neurologic Neurologic: Denies behavioral changes, Denies confusion, Denies dizziness, Denies frequent falls, Denies loss of vision, Denies numbness, Denies tingling and Denies weakness Psychiatric Psychiatric: Denies anxiety, Denies behavioral changes, Denies confusion, Denies depression, Denies homicidal ideation and Denies suicidal ideation Endocrine Endocrine: Denies fatigue, Denies flushing and Denies palpitations Hematologic/Lymphatic Hematologic/Lymphatic: Denies easy bruising Allergic/Immunologic Allergic/Immunologic: Denies urticaria, Denies throat swelling and Denies wheezing Patient History <Higinio Herring PA-C - Last Filed: 01/05/23 18:23> Medical History Hypertension Surgical History Hx of appendectomy Social History household members: none Smoking Status: Former smoker alcohol intake: never Smoking Status: Former smoker Substance Use Type: does not use Exam <Higinio Herring PA-C - Last Filed: 01/05/23 18:23> Narrative Exam Narrative: Const General:?cooperative, healthy appearing and comfortable [facility] Head:?normal to inspection Ears:?hearing grossly normal bilaterally Nose:?external nose normal Face and sinus:?normal facial exam and sinuses nontender Mouth:?oral mucosae normal Throat:?posterior oropharynx normal Eyes General:?appearance normal, both eyes and all related structures Neck Neck:?normal visual inspection and no lymphadenopathy noted Resp Effort & Inspection:?normal respiratory effort Auscultation:?clear to auscultation bilaterally Cardio Rate:?regular rate Rhythm:?regular rhythm GI Abdomen is soft, nondistended, nontender to palpation. There is no CVA tenderness. Neuro General:?patient alert, patient awake and patient oriented x3 Initial Vital Signs Initial Vital Signs: Vital Signs Pulse Rate 84 01/05/23 11:14 Respiratory Rate 24 01/05/23 11:14 Pulse Oximetry 96 01/05/23 11:14 <Lobo Stewart MD - Last Filed: 01/11/23 14:34> Initial Vital Signs Initial Vital Signs: Vital Signs Pulse Rate 84 01/05/23 11:14 Respiratory Rate 24 01/05/23 11:14 Pulse Oximetry 96 01/05/23 11:14 Course <Higinio Herring PA-C - Last Filed: 01/05/23 18:23> Orders Ordered: ED Orders 01/05/23 11:23 EKG-12 Lead Stat 01/05/23 11:35 Complete Blood Count AUTO DIFF Stat Comprehensive Metabolic Panel Stat Lipase Stat Magnesium Stat PTT Partial Thromboplastin [place] Stat Prothrombin Time INR Stat Troponin & CK Cardiac Panel Stat 01/05/23 12:47 XR elbow LT min 3V Stat XR hand LT min 3V Stat XR shoulder LT min 2V Stat XR wrist LT min 3V Stat 01/05/23 12:50 CT angio head and neck Stat CT head/brain wo con Stat 01/05/23 12:55 Urinalysis and Microscopic Stat Urine Culture Stat Vital Signs Vital signs: Vital Signs - 8 hr 01/05/23 11:18 01/05/23 11:14 01/05/23 11:16 Temperature 98.0 F Pulse Rate 85 84 Respiratory Rate 18 24 Blood Pressure 127/58 L 127/58 L Pulse Oximetry 94 96 Oxygen Delivery Method Room Air 01/05/23 11:16 01/05/23 11:30 01/05/23 11:30 Temperature Pulse Rate 83 80 Respiratory Rate 26 H 38 H Blood Pressure 112/53 L Pulse Oximetry 97 95 Oxygen Delivery Method 01/05/23 12:00 01/05/23 12:00 01/05/23 12:30 Temperature Pulse Rate 77 80 Respiratory Rate 34 H 31 H Blood Pressure 138/65 Pulse Oximetry 96 95 Oxygen Delivery Method 01/05/23 12:31 01/05/23 12:31 01/05/23 13:23 Temperature Pulse Rate 81 99 H Respiratory Rate 33 H 29 H Blood Pressure 163/75 H Pulse Oximetry 97 93 Oxygen Delivery Method 01/05/23 13:25 01/05/23 13:25 01/05/23 13:30 Temperature Pulse Rate 89 Respiratory Rate 21 Blood Pressure 171/90 H 164/64 H Pulse Oximetry 95 Oxygen Delivery Method 01/05/23 13:30 01/05/23 14:00 01/05/23 14:00 Temperature Pulse Rate 86 83 Respiratory Rate 21 24 Blood Pressure 179/77 H Pulse Oximetry 97 93 Oxygen Delivery Method 01/05/23 14:30 01/05/23 14:32 01/05/23 14:32 Temperature Pulse Rate 79 82 Respiratory Rate 26 H 23 Blood Pressure 158/73 H Pulse Oximetry 95 95 Oxygen Delivery Method 01/05/23 15:00 01/05/23 15:00 Temperature Pulse Rate 88 Respiratory Rate 19 Blood Pressure 126/79 Pulse Oximetry 95 Oxygen Delivery Method <Lobo Stewart MD - Last Filed: 01/11/23 14:34> Orders Ordered: ED Orders 01/05/23 11:23 EKG-12 Lead Stat 01/05/23 11:35 Complete Blood Count AUTO DIFF Stat Comprehensive Metabolic Panel Stat Lipase Stat Magnesium Stat PTT Partial Thromboplastin Moses Stat Prothrombin Time INR Stat Troponin & CK Cardiac Panel Stat 01/05/23 12:47 XR elbow LT min 3V Stat XR hand LT min 3V Stat XR shoulder LT min 2V Stat XR wrist LT min 3V Stat 01/05/23 12:50 CT angio head and neck Stat CT head/brain wo con Stat 01/05/23 12:55 Urinalysis and Microscopic Stat Urine Culture Stat Vital Signs Vital signs: Vital Signs - 8 hr 01/05/23 11:18 01/05/23 11:14 01/05/23 11:16 Temperature 98.0 F Pulse Rate 85 84 Respiratory Rate 18 24 Blood Pressure 127/58 L 127/58 L Pulse Oximetry 94 96 Oxygen Delivery Method Room Air 01/05/23 11:16 01/05/23 11:30 01/05/23 11:30 Temperature Pulse Rate 83 80 Respiratory Rate 26 H 38 H Blood Pressure 112/53 L Pulse Oximetry 97 95 Oxygen Delivery Method 01/05/23 12:00 01/05/23 12:00 01/05/23 12:30 Temperature Pulse Rate 77 80 Respiratory Rate 34 H 31 H Blood Pressure 138/65 Pulse Oximetry 96 95 Oxygen Delivery Method 01/05/23 12:31 01/05/23 12:31 01/05/23 13:23 Temperature Pulse Rate 81 99 H Respiratory Rate 33 H 29 H Blood Pressure 163/75 H Pulse Oximetry 97 93 Oxygen Delivery Method 01/05/23 13:25 01/05/23 13:25 01/05/23 13:30 Temperature Pulse Rate 89 Respiratory Rate 21 Blood Pressure 171/90 H 164/64 H Pulse Oximetry 95 Oxygen Delivery Method 01/05/23 13:30 01/05/23 14:00 01/05/23 14:00 Temperature Pulse Rate 86 83 Respiratory Rate 21 24 Blood Pressure 179/77 H Pulse Oximetry 97 93 Oxygen Delivery Method 01/05/23 14:30 01/05/23 14:32 01/05/23 14:32 Temperature Pulse Rate 79 82 Respiratory Rate 26 H 23 Blood Pressure 158/73 H Pulse Oximetry 95 95 Oxygen Delivery Method 01/05/23 15:00 01/05/23 15:00 Temperature Pulse Rate 88 Respiratory Rate 19 Blood Pressure 126/79 Pulse Oximetry 95 Oxygen Delivery Method MDM - Weakness <Higinio Herring PA-C - Last Filed: 01/05/23 18:23> Lab Data 01/05/23 11:35 01/05/23 11:35 Labs: Lab Results 01/05/23 01/05/23 01/05/23 Range/Units 11:35 11:35 11:35 WBC 7.9 (4.5-11.0) X10^3/uL RBC 4.59 (4.0-5.2) X10^6/uL Hgb 14.1 (12.0-16.0) g/dL Hct 41.9 (36-46) % MCV 91.2 (80-100) fL MCH 30.7 (26-34) PG MCHC 33.6 (30-36) % RDW 13.4 (11.6-14.8) % Plt Count 376 (150-400) X10^3/uL Neut % (Auto) 56.5 (50-75) % Lymph % (Auto) 30.4 (25-40) % [place] % (Auto) 9.2 (3-14) % Eos % (Auto) 2.7 (2-4) % Baso % (Auto) 1.2 (0-2) % Neut # (Auto) 4500 (1268-5317) /uL Lymph # (Auto) 2400 (7080-8911) /uL [place] # (Auto) 700 (0-900) /uL Eos # (Auto) 200 (0-450) /uL Baso # (Auto) 100 (0-100) /uL PT 12.0 (10.1-12.7) SECONDS INR 1.0 (0.9-1.3) APTT 27 (26-36) SECONDS Sodium 136 L (137-145) mmol/L Potassium 3.3 L (3.4-5.1) mmol/L Chloride 101 (98-107) mmol/L Carbon Dioxide 28 (22-32) mmol/L BUN 18 H (7-17) mg/dL Creatinine 0.97 (0.52-1.04) mg/dL Estimated GFR 59 L (>60) mL/min BUN/Creatinine Ratio 18.6 (6-22) Glucose 119 H (80-110) mg/dL Calcium 9.3 (8.4-10.2) mg/dL Magnesium 2.1 (1.6-2.3) mg/dL Total Bilirubin 0.6 (0.2-1.3) mg/dL AST 25 (14-36) IU/L ALT 22 (<35) IU/L Alkaline Phosphatase 92 (38-126) U/L Total Creatine Kinase 50 (30-135) U/L CK-MB (CK-2) TNP CK-MB (CK-2) Rel Index TNP Troponin I < 0.012 (0.01-0.034) ng/mL Total Protein 7.1 (6.3-8.2) g/dL Albumin 4.2 (3.5-5.0) g/dL Globulin 2.9 (1.7-4.1) g/dL Albumin/Globulin Ratio 1.4 (1.0-2.8) Lipase 94 (23-300) U/L Urine Color Urine Appearance Urine pH (4.5-8.0) Ur Specific [place] (1.000-1.035) Urine Protein (Negative) Urine Glucose (UA) (Negative) g/dL Urine Ketones (NEGATIVE) Urine Occult Blood (Negative) Urine Nitrate (Negative) Urine Bilirubin (NEGATIVE) Urine Urobilinogen (0.2) E.U./dL Ur Leukocyte Esterase (NEGATIVE) Urine RBC (0-5/HPF) Urine WBC (0-5/HPF) Ur Squamous Epith Cells (0-5/HPF) Ur Renal Epithelial Cell (0-1/HPF) Amorphous Sediment Urine Bacteria (None) Ur Culture Indicated? 01/05/23 Range/Units 12:55 WBC (4.5-11.0) X10^3/uL RBC (4.0-5.2) X10^6/uL Hgb (12.0-16.0) g/dL Hct (36-46) % MCV (80-100) fL MCH (26-34) PG MCHC (30-36) % RDW (11.6-14.8) % Plt Count (150-400) X10^3/uL Neut % (Auto) (50-75) % Lymph % (Auto) (25-40) % [place] % (Auto) (3-14) % Eos % (Auto) (2-4) % Baso % (Auto) (0-2) % Neut # (Auto) (8050-9576) /uL Lymph # (Auto) (8260-7217) /uL [place] # (Auto) (0-900) /uL Eos # (Auto) (0-450) /uL Baso # (Auto) (0-100) /uL PT (10.1-12.7) SECONDS INR (0.9-1.3) APTT (26-36) SECONDS Sodium (137-145) mmol/L Potassium (3.4-5.1) mmol/L Chloride (98-107) mmol/L Carbon Dioxide (22-32) mmol/L BUN (7-17) mg/dL Creatinine (0.52-1.04) mg/dL Estimated GFR (>60) mL/min BUN/Creatinine Ratio (6-22) Glucose (80-110) mg/dL Calcium (8.4-10.2) mg/dL Magnesium (1.6-2.3) mg/dL Total Bilirubin (0.2-1.3) mg/dL AST (14-36) IU/L ALT (<35) IU/L Alkaline Phosphatase (38-126) U/L Total Creatine Kinase (30-135) U/L CK-MB (CK-2) CK-MB (CK-2) Rel Index Troponin I (0.01-0.034) ng/mL Total Protein (6.3-8.2) g/dL Albumin (3.5-5.0) g/dL Globulin (1.7-4.1) g/dL Albumin/Globulin Ratio (1.0-2.8) Lipase (23-300) U/L Urine Color Yellow Urine Appearance Clear Urine pH 7.0 (4.5-8.0) Ur Specific [place] 1.010 (1.000-1.035) Urine Protein Negative (Negative) Urine Glucose (UA) Negative (Negative) g/dL Urine Ketones Negative (NEGATIVE) Urine Occult Blood Negative (Negative) Urine Nitrate Negative (Negative) Urine Bilirubin Negative (NEGATIVE) Urine Urobilinogen 0.2 (0.2) E.U./dL Ur Leukocyte Esterase 1+ H (NEGATIVE) Urine RBC None seen (0-5/HPF) Urine WBC 1-5/hpf (0-5/HPF) Ur Squamous Epith Cells 5-10 /hpf H (0-5/HPF) Ur Renal Epithelial Cell 0-1/hpf (0-1/HPF) Amorphous Sediment 1+ Urine Bacteria Occasional (0-1) (None) Ur Culture Indicated? Specimen cultured MDM Narrative Medical decision making narrative: 77-year-old female presents to the ED with 2 days of lightheadedness. Concern for ACS versus dehydration versus metabolic derangements versus TIA versus you TI versus other. Will obtain chest x-ray, EKG, labs, troponin, CT head, CTA head and neck, x-rays of the shoulder, elbow, wrist, UA. Workup largely unremarkable. Discussed findings with patient, recommend good hydration since lightheadedness can often be caused by dehydration. Patient agreed that she has not been drinking as much water and agrees to up her hydration. Patient agrees to follow-up with her PCP as soon as possible. ED return precautions were discussed with patient. Patient verbalized understanding. Medical records reviewed: Yes <Lobo Stewart MD - Last Filed: 01/11/23 14:34> Lab Data Labs: Lab Results 01/05/23 01/05/23 01/05/23 Range/Units 11:35 11:35 11:35 WBC 7.9 (4.5-11.0) X10^3/uL RBC 4.59 (4.0-5.2) X10^6/uL Hgb 14.1 (12.0-16.0) g/dL Hct 41.9 (36-46) % MCV 91.2 (80-100) fL MCH 30.7 (26-34) PG MCHC 33.6 (30-36) % RDW 13.4 (11.6-14.8) % Plt Count 376 (150-400) X10^3/uL Neut % (Auto) 56.5 (50-75) % Lymph % (Auto) 30.4 (25-40) % [place] % (Auto) 9.2 (3-14) % Eos % (Auto) 2.7 (2-4) % Baso % (Auto) 1.2 (0-2) % Neut # (Auto) 4500 (0143-2700) /uL Lymph # (Auto) 2400 (7507-1450) /uL [place] # (Auto) 700 (0-900) /uL Eos # (Auto) 200 (0-450) /uL Baso # (Auto) 100 (0-100) /uL PT 12.0 (10.1-12.7) SECONDS INR 1.0 (0.9-1.3) APTT 27 (26-36) SECONDS Sodium 136 L (137-145) mmol/L Potassium 3.3 L (3.4-5.1) mmol/L Chloride 101 (98-107) mmol/L Carbon Dioxide 28 (22-32) mmol/L BUN 18 H (7-17) mg/dL Creatinine 0.97 (0.52-1.04) mg/dL Estimated GFR 59 L (>60) mL/min BUN/Creatinine Ratio 18.6 (6-22) Glucose 119 H (80-110) mg/dL Calcium 9.3 (8.4-10.2) mg/dL Magnesium 2.1 (1.6-2.3) mg/dL Total Bilirubin 0.6 (0.2-1.3) mg/dL AST 25 (14-36) IU/L ALT 22 (<35) IU/L Alkaline Phosphatase 92 (38-126) U/L Total Creatine Kinase 50 (30-135) U/L CK-MB (CK-2) TNP CK-MB (CK-2) Rel Index TNP Troponin I < 0.012 (0.01-0.034) ng/mL Total Protein 7.1 (6.3-8.2) g/dL Albumin 4.2 (3.5-5.0) g/dL Globulin 2.9 (1.7-4.1) g/dL Albumin/Globulin Ratio 1.4 (1.0-2.8) Lipase 94 (23-300) U/L Urine Color Urine Appearance Urine pH (4.5-8.0) Ur Specific [place] (1.000-1.035) Urine Protein (Negative) Urine Glucose (UA) (Negative) g/dL Urine Ketones (NEGATIVE) Urine Occult Blood (Negative) Urine Nitrate (Negative) Urine Bilirubin (NEGATIVE) Urine Urobilinogen (0.2) E.U./dL Ur Leukocyte Esterase (NEGATIVE) Urine RBC (0-5/HPF) Urine WBC (0-5/HPF) Ur Squamous Epith Cells (0-5/HPF) Ur Renal Epithelial Cell (0-1/HPF) Amorphous Sediment Urine Bacteria (None) Ur Culture Indicated? 01/05/23 Range/Units 12:55 WBC (4.5-11.0) X10^3/uL RBC (4.0-5.2) X10^6/uL Hgb (12.0-16.0) g/dL Hct (36-46) % MCV (80-100) fL MCH (26-34) PG MCHC (30-36) % RDW (11.6-14.8) % Plt Count (150-400) X10^3/uL Neut % (Auto) (50-75) % Lymph % (Auto) (25-40) % [place] % (Auto) (3-14) % Eos % (Auto) (2-4) % Baso % (Auto) (0-2) % Neut # (Auto) (8364-3069) /uL Lymph # (Auto) (8576-6211) /uL [place] # (Auto) (0-900) /uL Eos # (Auto) (0-450) /uL Baso # (Auto) (0-100) /uL PT (10.1-12.7) SECONDS INR (0.9-1.3) APTT (26-36) SECONDS Sodium (137-145) mmol/L Potassium (3.4-5.1) mmol/L Chloride (98-107) mmol/L Carbon Dioxide (22-32) mmol/L BUN (7-17) mg/dL Creatinine (0.52-1.04) mg/dL Estimated GFR (>60) mL/min BUN/Creatinine Ratio (6-22) Glucose (80-110) mg/dL Calcium (8.4-10.2) mg/dL Magnesium (1.6-2.3) mg/dL Total Bilirubin (0.2-1.3) mg/dL AST (14-36) IU/L ALT (<35) IU/L Alkaline Phosphatase (38-126) U/L Total Creatine Kinase (30-135) U/L CK-MB (CK-2) CK-MB (CK-2) Rel Index Troponin I (0.01-0.034) ng/mL Total Protein (6.3-8.2) g/dL Albumin (3.5-5.0) g/dL Globulin (1.7-4.1) g/dL Albumin/Globulin Ratio (1.0-2.8) Lipase (23-300) U/L Urine Color Yellow Urine Appearance Clear Urine pH 7.0 (4.5-8.0) Ur Specific [place] 1.010 (1.000-1.035) Urine Protein Negative (Negative) Urine Glucose (UA) Negative (Negative) g/dL Urine Ketones Negative (NEGATIVE) Urine Occult Blood Negative (Negative) Urine Nitrate Negative (Negative) Urine Bilirubin Negative (NEGATIVE) Urine Urobilinogen 0.2 (0.2) E.U./dL Ur Leukocyte Esterase 1+ H (NEGATIVE) Urine RBC None seen (0-5/HPF) Urine WBC 1-5/hpf (0-5/HPF) Ur Squamous Epith Cells 5-10 /hpf H (0-5/HPF) Ur Renal Epithelial Cell 0-1/hpf (0-1/HPF) Amorphous Sediment 1+ Urine Bacteria Occasional (0-1) (None) Ur Culture Indicated? Specimen cultured Discharge Plan Departure Patient Disposition: Home Clinical Impression: Light headedness, Arm pain Instructions: DI for Dehydration -- Adult, DI for Arm Pain Activity Restrictions/Additional Instructions: You were evaluated in the ED today for dizziness and left arm pain. Your chest x-ray, EKG, labs and urine were normal. It is likely that your lightheadedness is due to dehydration. Please ensure to stay adequately hydrated by drinking sips of water throughout the day. We obtained x-rays of the left arm and there were no fractures or dislocations. 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 You are being prescribed gabapentin for the pain. Please follow-up with your PCP as soon as possible for further evaluation on the arm pain and lightheadedness. Prescriptions: New gabapentin 100 mg capsule 100 mg PO TID Qty: 90 0RF Referrals: Miscellaneous,DoctorMD [Primary Care Provider] - Stand Alone Forms: Patient Portal/API <Lobo Stewart MD - Last Filed: 01/11/23 14:34> Cosign ED Attending Cosignature Attestation: I was immediately available in the department for consultation. ?This documentation has been reviewed and I agree with assessment and plan. Supervised by Lobo Stewart MD
--- NOTE | 2023-01-05 12:47 | DI.RAD.S_ITS ---
PROCEDURE: XR ELBOW LT MIN 3V INDICATIONS: Fall TECHNIQUE: 3 views of the elbow were acquired. COMPARISON: None. FINDINGS: Bones: No fractures or dislocations. No suspicious bony lesions. Soft tissues: No elbow joint effusion. No suspicious soft tissue calcifications. IMPRESSION: No acute radiographic findings. If pain persists, followup imaging in 5-7 days is recommended to exclude occult fracture. Dictated by: Jennifer Hancock M.D. on 01/05/2023 at 13:23 Approved by: Jennifer Hancock M.D. on 01/05/2023 at 13:23
--- NOTE | 2023-01-05 12:47 | DI.RAD.S_ITS ---
PROCEDURE: XR WRIST LT MIN 3V INDICATIONS: Fall TECHNIQUE: 4 views of the wrist were acquired. COMPARISON: None. FINDINGS: Bones: Patient is status post distant ORIF of the distal radius. No hardware fracture. No acute displaced fracture visualized. Scaphoid view: The scaphoid appears intact where visualized. Soft tissues: No suspicious soft tissue calcifications. IMPRESSION: Postsurgical change. No acute fracture visualized; however visualization of the distal radius is somewhat limited by overlying hardware. If pain persists, followup imaging in 5-7 days is recommended to exclude occult fracture. Dictated by: Jennifer Hancock M.D. on 01/05/2023 at 13:16 Approved by: Jennifer Hancock M.D. on 01/05/2023 at 13:17
--- NOTE | 2023-01-05 12:47 | DI.RAD.S_ITS ---
PROCEDURE: XR HAND LT MIN 3V INDICATIONS: Fall TECHNIQUE: 3 views of the hand(s) acquired. COMPARISON: None. FINDINGS: Bones: Bones are diffusely osteopenic. No acute fracture or dislocation. A chronic appearing non unified fracture is present at the ulnar styloid. No suspicious bony lesions. 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 Soft tissues: No suspicious soft tissue calcifications. IMPRESSION: No acute radiographic findings. If pain persists, followup imaging in 5-7 days is recommended to exclude occult fracture. Dictated by: Jennifer Hancock M.D. on 01/05/2023 at 13:17 Approved by: Jennifer Hancock M.D. on 01/05/2023 at 13:23
--- NOTE | 2023-01-05 12:47 | DI.RAD.S_ITS ---
PROCEDURE: XR SHOULDER LT MIN 2V INDICATIONS: Fall TECHNIQUE: 3 views of the shoulder were acquired. COMPARISON: [facility], CR, XR SHOULDER LT MIN 2V, 12/21/2022, 15:00. [facility], CR, XR SHOULDER LT MIN 2V, 12/21/2022, 16:42. FINDINGS: Bones: No fractures or dislocations. No suspicious bony lesions. Visualized ribs appear intact. Soft tissues: No suspicious soft tissue calcifications. IMPRESSION: No acute radiographic findings. If pain persists, followup imaging in 5-7 days is recommended to exclude occult fracture. Dictated by: Jennifer Hancock M.D. on 01/05/2023 at 13:24 Approved by: Jennifer Hancock M.D. on 01/05/2023 at 13:24
--- NOTE | 2023-01-05 12:50 | DI.CT.S_ITS ---
PROCEDURE: CT ANGIO HEAD AND NECK INDICATIONS: ?TIA TECHNIQUE: After the administration of intravenous contrast, 1 mm thick sections acquired from the aortic arch through the [place] of [place]. Post-contrast 4.5 mm thick sections then re-acquired from the foramen magnum to the vertex. MIP reformats of the arterial vasculature were utilized. For radiation dose reduction, the following was used: automated exposure control, adjustment of mA and/or kV according to patient size. COMPARISON: None. FINDINGS: Internal carotid arteries: No acute findings. Intracranial ICA are patent with no significant stenosis. No occlusion. No aneurysm. Anterior cerebral arteries: Unremarkable. No significant stenosis. No occlusion. No aneurysm. Middle cerebral arteries: Unremarkable. No significant stenosis. No occlusion. No aneurysm. Posterior cerebral arteries: Unremarkable. No significant stenosis. No occlusion. No aneurysm. Basilar artery: Unremarkable. No significant stenosis. No occlusion. No aneurysm. Vertebral arteries: Unremarkable. No significant stenosis. No dissection or occlusion. Dural venous sinuses: Unremarkable given phase of enhancement. Other: Arterial phase brain parenchyma unremarkable. Neck CT Angiogram: Internal carotid arteries: Mild atherosclerotic plaque in cavernous segments of both internal carotid arteries without stenosis. No significant stenosis. No dissection or occlusion. Common carotid arteries: Unremarkable. No significant stenosis. No dissection or occlusion. External carotid arteries: Unremarkable. No occlusion. Vertebral arteries: Unremarkable. No significant stenosis. No dissection or occlusion. Aortic arch and mediastinum: Unremarkable. Other: Arterial phase neck soft tissue within normal limits. Both lung apices are clear. IMPRESSION: 1. Mild atherosclerotic plaque without significant stenosis, aneurysm vascular malformation Note: Any reported proximal ICA stenosis was calculated using NASCET guidelines. Any quantitative measurements of stenosis were performed using NASCET criteria. Approved by: Yandel Birmingham M.D. on 01/05/2023 at 13:26
--- NOTE | 2023-01-05 12:50 | DI.CT.S_ITS ---
PROCEDURE: CT HEAD/BRAIN WO CON INDICATIONS: ?TIA TECHNIQUE: Noncontrast 4.5 mm thick angled axial sections acquired from the foramen magnum to the vertex, with coronal and sagittal reformats. For radiation dose reduction, the following was used: automated exposure control, adjustment of mA and/or kV according to patient size. COMPARISON: [facility], CT, CT HEAD/BRAIN WO CON, 12/21/2022, 15:03. FINDINGS: Image quality: Excellent. CSF spaces: Basal cisterns are patent. No extra-axial fluid collections. Ventricles are normal in size and shape. Brain: No midline shift. No intracranial masses or hemorrhage. Hull-white matter interface is normal. Moderate atrophy and white matter chronic ischemic change Skull and face: Calvarium and visualized facial bones are intact, without suspicious lesions. Sinuses: Visualized sinuses and mastoids are clear. IMPRESSION: Atrophy and chronic ischemic change without intracranial hemorrhage or mass effect Approved by: Yandel Birmingham M.D. on 01/05/2023 at 13:02
[2023-01-05 12:59] LABS: Appearance Urine UA CLEAR; Bilirubin Urine UA NEGATIVE (NEGATIVE); Color Urine UA YELLOW; Glucose Urine UA NEGATIVE (Negative); Ketones Urine UA NEGATIVE (NEGATIVE); Leukocyte Esterase Urine UA 1+ (NEGATIVE); Nitrite Urine UA NEGATIVE (Negative); Occult Blood Urine UA NEGATIVE (Negative); Protein Urine UA NEGATIVE (Negative); Urobilinogen Urine UA 0.2 E.U./dL (0.2)
[2023-01-05 13:09] LABS: Amorphous Sediment Urine 1+; Bacteria Urine Occasional (0-1); Culture Indicated Urine Specimen Cultured; RBC Urine None Seen (0-5/HPF); Renal Epithelial Cells Urine 0-1/HPF (0-1/HPF); Squamous Epithelial Cell Urine 5-10 /HPF (0-5/HPF); WBC Urine 1-5/HPF (0-5/HPF)
== END 2023-01-05 15:35 | disposition home or self-care (01) ==
PROVIDERS: Emergency Medicine; Emergency Provider Student in an Organized Health Care Education/Training Program
DX: R42 Dizziness and giddiness (principal); M79.602 Pain in left arm; R29.6 Repeated falls; R20.0 Anesthesia of skin; I10 Essential (primary) hypertension; Z87.891 Personal history of nicotine dependence
CPT/HCPCS: 70450; 70496; 70498; 73030; 73080; 73110; 73130; 80053; 81001; 82550; 83690; 83735; 84484; 85025; 85610; 85730; 87086; 93005; 93010; 99284